=== PATIENT | male | born 1945 | race Caucasian/White ===

== ENCOUNTER 2017-08-18 10:51 | Inpatient (IN) | payer OTHER ==
--- NOTE | 2017-08-18 11:12 | CPEKG ---
Heart Rate: 134 RR Interval: 448 QRSD Interval: 76 QT Interval: 320 QTC Interval: 478 QRS Lakin: -60 T Wave Lakin: 48 EKG Severity - ABNORMAL ECG - EKG Impression: A-FLUTTER W/ PREDOM 2:1 AV BLOCK, A-RATE 272 EKG Impression: INFERIOR INFARCT, AGE INDETERMINATE EKG Impression: ABNRM R PROG, CONSIDER ASMI OR LEAD PLACEMENT EKG Impression: LATERAL LEADS ARE ALSO INVOLVED EKG Impression: BORDERLINE PROLONGED QT INTERVAL Electronically Signed By: Patrizia Ennis 18-Aug-2017 15:30:22
[2017-08-18 11:21] LABS: PLATELET COUNT 205 10^3/uL (150-400)
[2017-08-18] MEDS ORDERED: DILTIAZEM 125 MG in D5W 125 ML IV ONE (11:46)
[2017-08-18] MEDS ORDERED: FUROSEMIDE 40 MG/4 ML VIAL IVP ONE (12:07)
[2017-08-18] MEDS ORDERED: AZITHROMYCIN IV 500 MG in D5W 250 ML IV ONE (12:07)
[2017-08-18] MEDS ORDERED: cefTRIAXone 1 GM in STERILE WATER INJ 10 ML IV ONE (12:07)
--- NOTE | 2017-08-18 12:13 | EDPHY ---
H & P Time Seen by Provider: 08/18/17 11:07 HPI/ROS: HPI Shortness of breath. 72-year-old male by private vehicle. He has a history of congestive heart failure as well as coronary artery disease. This patient reports that he fell 2 weeks ago. He contused his left-sided lower ribs. He reports over the last week he has had increasing shortness of breath with physical exertion and with laying flat. Significantly worse last night. No associated palpitations. He denies cough. No fever. No muscle aches or joint aches. No chest pain. ROS: Constitutional: No fever, no chills. No weakness. Eyes: No discharge. No changes in vision. ENT: No sore throat. No nasal congestion or rhinorrhea. Respiratory: No cough. As above. Cardiac: No chest pain, no palpitations. Gastrointestinal: No abdominal pain, no vomiting, no diarrhea. Genitourinary: No hematuria. No dysuria or increased frequency with urination. Musculoskeletal: No back pain. No neck pain. No myalgias or arthralgias. Skin: No rashes. Neurological: No headache. No focal weakness or altered sensation. Past medical history: Diabetes, atrial fibrillation, as above. Social history: Nonsmoker. Denies alcohol. Here by himself. Physical Exam: General Appearance: Alert, no distress. Obese habitus. This patient is responding to questions appropriately and in full sentences, is mildly dyspneic when doing this. This patient appears well-hydrated and well-nourished. Eyes: Pupils equal and round no pallor or injection. No lid edema, erythema or injection. Respiratory: There are no retractions, lungs are clear to auscultation anteriorly with good air movement bilaterally. Cardiovascular: Tachycardia, regular rhythm. No murmur appreciated. Gastrointestinal: Obese habitus: Abdomen is soft and nontender, no masses, bowel sounds normal. No focal tenderness at McBurney's point. No Monterroso sign. Neurological: Motor sensory function is grossly intact. Cranial nerves are normal. Gait is normal. Skin: Warm and dry, no rashes. He has an area of ecchymosis medial aspect right upper extremity from his fall. There is no significant tenderness on palpation of this area. No pain elicited by axial compression of his forearm and arm. Elbow ranges without significant pain or impingement. Musculoskeletal: Neck is supple and nontender. He has some ecchymosis noted left side mid axillary line at the costal margin. No bony tenderness on palpation to this area. No crepitus or deformity noted. Extremities are symmetrical. All joints range without pain or impingement. Psychiatric: No agitation. No depression. Database: EKG: EKG time is 11:09 a.m.; this shows a narrow complex regular tachycardia with ventricular rate of 134. Likely a flutter with 2-1 block QS waves noted in 2 3 and AVF, poor R-wave progression in the anterior precordial leads. Imaging: Chest x-ray AP portable: Mild CHF versus fluid overload. Moderate to large pleural effusion on the right side with underlying basilar atelectasis versus infiltrate. Interpreted by me. Procedures: Emergency department course: IV placed x2, vital signs reviewed, patient placed on a pump servicer helper. Patient currently 92% on 2 L by nasal cannula oxygen. EKG obtained and reviewed by myself. He will be started on a diltiazem loading drip at 2.5 milligrams/minute for rate control. He will also be given 40 mg of IV Lasix once rate control has been obtained. He was started on IV normal saline with 250 cc to 500 cc to be given over the next hr. 12:35 p.m., patient re-evaluated. He is currently on a steady state diltiazem drip at 10 milligrams/hour. Blood pressure is 104/68. restaurant cook shows a narrow complex irregular rhythm at 91. Pulse oximetry currently 92% on 2 L by nasal cannula oxygen. He received a total of 23 mg of IV diltiazem for initial loading drip rate control management. Once rate was controlled he was given 40 mg of IV Lasix. He is noted to be hyperkalemic without EKG changes. His troponin is also noted to be mildly elevated. He does not have chest pain. This is likely from his prolonged tachycardic state. The patient was also covered with IV azithromycin and IV ceftriaxone for possible infiltrative process as noted above on x-ray. Blood cultures were obtained before antibiotics administered. I discussed the results of his diagnostic testing. As well as plan for admission. All of his questions were answered. 12:50 p.m., spoke with on-call hospitalist. Patient accepted for admission under the care of Dr. Hidalgo. Differential Diagnosis: The differential diagnosis on this patient includes but is not limited to atrial flutter with 2-1 block versus atrial flutter with variable block, congestive heart failure, acute coronary syndrome, pneumonia, hyperkalemia. This represents a partial list of diagnoses considered. These considerations are based on history, physical exam, past history, reassessment and diagnostic testing. Smoking Status: Never smoked Constitutional: Initial Vital Signs Temperature (C) 36.4 C 08/18/17 11:00 Heart Rate 136 H 08/18/17 11:00 Respiratory Rate 20 08/18/17 11:00 Blood Pressure 119/91 H 08/18/17 11:00 O2 Sat (%) 91 L 08/18/17 11:00 O2 Delivery Mode Nasal Cannula O2 (L/minute) 3 Allergies/Adverse Reactions: No Known Allergies Allergy (Verified 08/18/17 10:57) Home Medications: Medication Instructions Recorded Aspirin [Aspirin 325 mg (OTC)] 325 mg PO DAILY 02/23/13 [place]-3 Fatty Acids [Fish Oil 1000 1,000 mg PO DAILY 02/23/13 mg (OTC)] Lisinopril [Zestril 5 mg (*)] 5 mg PO DAILY 08/18/17 Multivitamins [Multivitamin (*)] 1 each PO DAILY 08/18/17 Simvastatin [Zocor] 20 mg PO DAILY 08/18/17 Warfarin Sodium [Coumadin 2.5MG 2.5 mg PO SUTUTHFRSA 08/18/17 (*)] Warfarin Sodium [Coumadin 5MG (*)] 5 mg PO MOWE 08/18/17 metFORMIN HCL [Glucophage 500 mg 1,000 mg PO DAILY 08/18/17 (*)] metFORMIN HCL [Glucophage 500 mg 500 mg PO DAILY18 08/18/17 (*)] Medical Decision Making Critical Care Time: I spent a total of 42 minutes of critical care time in obtaining history, performing a physical exam, bedside monitoring of interventions, collecting and interpreting tests and discussion with consultants but not including time spent performing procedures. - Data Points Laboratory Results: Laboratory Results 08/18/17 11:10 08/18/17 11:10 08/18/17 11:10 INR 6.66 H* (0.83-1.16) Medications Given: Acetaminophen (Tylenol) 650 mg PO Q4HRS PRN PRN Reason: Pain, Mild/Fever, Can Take PO Stop: 02/14/18 13:00 Last Admin: 08/19/17 02:38 Dose: 650 mg Aspirin (Aspirin) 325 mg PO DAILY SKYLAR Stop: 02/15/18 08:59 Last Admin: 08/19/17 10:34 Dose: 325 mg Atorvastatin Calcium (Lipitor) 10 mg PO DAILY SKYLAR Stop: 02/15/18 08:59 Last Admin: 08/19/17 10:33 Dose: 10 mg Furosemide (Lasix Injection) 40 mg IVP BID@0900,1500 [facility] [place] Stop: 02/15/18 10:05 Last Admin: 08/19/17 15:51 Dose: 40 mg Insulin Human Lispro (Humalog Lispro) 0 unit SC TIDMEAL SKYLAR PRN Reason: Protocol Stop: 02/14/18 17:59 Last Admin: 08/19/17 16:10 Dose: Not Given Multivitamins (Tab-A-Randal) 1 each PO DAILY [facility] Stop: 02/15/18 08:59 Last Admin: 08/19/17 10:34 Dose: 1 each Edvbl-0-Joxq Ethyl Esters (Fish Oil) 1,000 mg PO DAILY [facility] [place] Stop: 02/15/18 08:59 Last Admin: 08/19/17 10:34 Dose: 1,000 mg Discontinued Medications Atropine Sulfate (Atropine 1 Mg/10 Ml Syringe) 1 mg IVP ONCALL ONE Stop: 08/19/17 11:17 Last Admin: 08/19/17 15:23 Dose: Not Given Furosemide (Lasix Injection) 40 mg IVP EDNOW ONE Stop: 08/18/17 12:08 Last Admin: 08/18/17 12:36 Dose: 40 mg Gabapentin (Neurontin) 300 mg PO ONCE ONE Stop: 08/19/17 03:45 Last Admin: 08/19/17 03:54 Dose: 300 mg Diltiazem HCl 125 mg/ Dextrose 125 mls @ 0 mls/hr IV EDNOW ONE; As Directed PRN Reason: Protocol Stop: 08/18/17 11:47 Last Admin: 08/18/17 12:09 Dose: 125 mls Azithromycin 500 mg/ Dextrose 255 mls @ 255 mls/hr IV EDNOW ONE PRN Reason: Protocol Stop: 08/18/17 13:06 Last Admin: 08/18/17 12:54 Dose: 255 mls Ceftriaxone Sodium 1 gm/ (Sterile Water) 10 mls @ 150 mls/hr IV EDNOW ONE PRN Reason: Protocol Stop: 08/18/17 12:10 Last Admin: 08/18/17 12:47 Dose: 10 mls Sodium Chloride (Ns) 1,000 mls @ 0 mls/hr IV ONCALL ONE PRN Reason: TKO Stop: 08/19/17 11:17 Last Admin: 08/19/17 15:23 Dose: Not Given Metoprolol Tartrate (Lopressor) 12.5 mg PO BID SKYLAR Stop: 02/14/18 20:59 Last Admin: 08/19/17 10:33 Dose: 12.5 mg Metoprolol Tartrate (Lopressor) 12.5 mg PO ONCE ONE Stop: 08/19/17 09:42 Last Admin: 08/19/17 10:33 Dose: 12.5 mg Phytonadione (Vitamin K) 200 mcg PO ONCE ONE Stop: 08/18/17 13:38 Last Admin: 08/18/17 14:22 Dose: 200 mcg Departure - Departure Disposition: [facility] Inpatient Acute Clinical Impression: Atrial flutter, Tachycardia, Elevated troponin, Congestive heart failure, Hyperkalemia, Possible pneumonia
[2017-08-18] MEDS ORDERED: ONDANSETRON DISINTEGRATING 4 MG TAB PO PRN (13:01)
[2017-08-18] MEDS ORDERED: ONDANSETRON 4 MG/2 ML VIAL IVP PRN (13:01)
[2017-08-18] MEDS ORDERED: PHYTONADIONE 100 MCG TAB PO ONE (13:37)
[2017-08-18] MEDS ORDERED: D50W 25 GM/50 ML SYR IVP PRN (13:52)
--- NOTE | 2017-08-18 14:17 | GHP ---
[f rep st] HISTORY AND PHYSICAL DATE OF ADMISSION: 08/18/2017 CHIEF COMPLAINT: Dyspnea. HISTORY OF PRESENT ILLNESS: A 72-year-old male with a history of coronary artery disease, status pos t CABG with ischemic cardiomyopathy, who presents with 2 weeks of progressive shortness of breath. P annient notes his dyspnea is worse at night when lying flat, has had several episodes of PND. Describ es increasing lower extremity edema during that time period in addition to weight gain, even with delisa ing less nutritional intake. The patient reports having a mechanical fall approximately a week and a half ago that led to some bruised ribs on the left. He thought potentially that fall was the causat paul agent for his progressing shortness of breath; therefore, did not present for evaluation. Denies in this time period any sensation of palpitations, did note tightening of his chest in the evenings when he was feeling particularly short of breath lying flat. The patient denies any subjective fever s or chills. Reports normal bowel habits, normal passing of urine. No blood in his stools or urine. PAST MEDICAL HISTORY: 1. Coronary artery disease, status post CABG. 2. Atrial fibrillation, on chronic anticoagulation. 3. Hypertension. 4. Hyperlipidemia. 5. Diabetes. SOCIAL HISTORY: Negative for tobacco. Occasional alcohol. No illicit drugs or marijuana. FAMILY HISTORY: Positive for coronary artery disease in a brother who of an AK in his 60s. ADVANCED DIRECTIVES: Patient is full COR, full tube. His sister would be his medical decision maker . REVIEW OF SYSTEMS: A 10-point review of systems is negative with the exception of that reported in t he HPI. PHYSICAL EXAMINATION: VITAL SIGNS: At presentation, blood pressure 125/94, heart rate 136, oxygen s aturation 89% on 3 L. GENERAL: This is an obese-appearing elderly male in no acute distress. HEENT : Notable for moist mucous membranes. Eye exam is negative for any icterus. CARDIAC: Patient's he art sounds are distant and irregular. PULMONARY: Limited respiratory effort with diminished breath sounds at the bases. No rales are appreciated. GASTROINTESTINAL: Obese abdomen, positive bowel rufino nds. Abdomen is soft. MUSCULOSKELETAL: Notable for pitting bilateral lower extremity edema. SKIN: Notable for erythematous changes across the abdomen and lower extremities. Suspect related to dry skin and/or perfusion abnormalities. PSYCHIATRIC: Patient is cooperative on interview and examinati on. NEUROLOGIC: He is alert and oriented x3. DATA: White count 7.2, hematocrit 53.5, platelets of 205. INR 6.6. Potassium of 5.8, creatinine of 1.1, glucose of 124. BNP of 5560. Troponin 0.131. Chest x-ray, which I personally reviewed and in terpreted, shows an elevated right hemidiaphragm with pulmonary edema. EKG, which I personally revie wed and interpreted, shows atrial flutter, running approximately 150. No acute ST-T changes. ASSESSMENT AND PLAN: This is a 72-year-old male presenting with dyspnea. 1. Acute systolic heart failure. Patient has a known reduced ejection fraction and is presenting wi th atrial flutter at rapid rates. Will initiate IV diuresis as well as rate control. Cardiology has been consulted. Transthoracic echocardiogram has been ordered to look at progression of patient's c ardiomyopathy. 2. Atrial flutter with rapid ventricular response. Patient did not feel palpitations. Suspect he h as likely been running fast for quite some time or intermittently running fast over the course of the preceding 2 weeks. The patient's INR is supratherapeutic, was initiated on diltiazem drip with good rate control, but we are noticing a decline in blood pressure from the systolics in the 120s to syst olics now in the 80s. Have discussed with Cardiology. Will discontinue this diltiazem drip with hop es of initiating oral metoprolol 12.5 b.i.d. We have kept the patient n.p.o. in case he needs more e mergent cardioversion. 3. Acute hypoxic respiratory failure secondary to systolic heart failure. Will treat as above, opti mizing the patient's cardiac parameters and IV diuresis. 4. Coagulopathy secondary to supratherapeutic Coumadin. We will give the patient low-dose vitamin K in hopes of reversing to a more normal therapeutic range. Patient has no acute signs of bleeding. 5. Diabetes. Will treat with sliding scale insulin, holding metformin in the inpatient setting. 6. Hypertension. Patient is currently hypotensive secondary to IV diltiazem. Will monitor closely. 7. Elevated creatinine. Patient's baseline creatinine appears to be 0.8. He is presenting with a c reatinine of 1.1. We are initiating IV diuresis. We will hold the patient's lisinopril until a rech christos of his renal function tomorrow. 8. Hyperlipidemia. We will continue his statin therapy. 9. Prophylaxis. The patient has a supratherapeutic INR. 10. Diet. N.p.o. until clear plan in place related to cardioversion. 11. Disposition. I expect greater than 2 midnights as the patient is presenting with atrial flutter with rapid ventricular response and acute heart failure. Patient will require additional diagnostic s and therapeutics for stabilization. I have discussed the case with Dr. Subha Santiago from Cardiology. They will consult and manage with us concurrently. /[id number]/MODL
--- NOTE | 2017-08-18 15:16 | ECHO ---
[email or web address] [address] [address] Main: [phone] Fax: Transthoracic Echocardiogram Name: KISHA BELTRAN MR#: [id number] Study Date: 08/18/2017 Study Time: 02:09 PM Date of : 1945 Age: 72 year(s) Height: 175.3 cm (69 in.) Weight: 97.52 kg (215 lb.) BSA: 2.13 m2 Gender: Male Examination: Echo Indication: Systolic heart disease Image Quality: Contrast: Requested by: Orly Hidalgo BP: 88 mmHg/54 mmHg Heart Rate: Rhythm: Indication: Systolic heart disease Procedure Staff Environmental Professional: Polly Ramos Reading Physician: Subha Santiago Requesting Provider: Orly Hidalgo Conclusions: Mildly dilated left ventricle. The ejection fraction is estimated to be 20-25 %. global hypokinesis with septal dyskinesis. Moderately dilated right ventricle. Moderately reduced RV function. Flattened interventricular septum consistent with right ventricular pressure and/or volume overload septum. The left atrium is moderately dilated. The right atrium is moderately dilated. Moderate mitral valve regurgitation is present. There is a partially mobile echodensity associated with the non coronary cusp of the aortic valve; vegetation cannot be ruled out. The valve was not interrogated by Doppler. Moderate to severe tricuspid valve regurgitation. The pulmonary artery pressure is normal. Compared with 01/2013 LVEF is slightly worse. LV apical thrombus not seen on current study. Valvular disease as above is now present Measurements: Chambers Valvular Assessment AV/MV Valvular Assessment TV/PV Normal Normal Normal Name Value Range Name Value Range Name Value Range Ao Ara (MM): 3.5 cm (2.2 cm-3.7 AV Vmax: 1.09 m/s (1 m/s-1.7 TR Vmax: 2.09 mm/s ( - ) cm) m/s) TR PGmax: 17 mmHg ( - ) IVSd (2D): 1.1 cm (0.6 cm-1.1 AV maxP mmHg ( - ) syst. PAP: 27 mmHg ( - ) cm) AV meanP mmHg ( - ) LVDd (2D): 5.7 cm (4.2 cm-5.9 MV E Vmax: 0.64 m/s ( - ) cm) LVDs (2D): 4.9 cm (2.1 cm-4 cm) Patient: KISHA BELTRAN Study Date: 08/18/2017 Page 1 of 2 02:09 PM LVPWd (2D): 0.9 cm (0.6 cm-1 cm) LVOTd 2.3 cm 2.3 cm mm LVEF (2D): 29 (>=54 %) EF Range: 20-25 % Continued Measurements: Chambers Valvular Assessment AV/MV Valvular Assessment TV/PV Name Value Name Value Name Value LADs Lon.3 cm MR Vena Contracta: 0.6 cm CVP (est.): 10 mmHg LA Area: 26.8 cm2 Findings: Left Ventricle: Mildly dilated left ventricle. The ejection fraction is estimated to be 20-25 %. global hypokinesis with septal dyskinesis. Right Ventricle: Moderately dilated right ventricle. Moderately reduced RV function. Flattened interventricular septum consistent with right ventricular pressure and/or volume overload septum. Left Atrium: The left atrium is moderately dilated. Right Atrium: The right atrium is moderately dilated. Mitral Valve: The mitral valve is normal in appearance and function. Moderate mitral valve regurgitation is present. Aortic Valve: Mild aortic cusp calcification is noted. There is a partially mobile echodensity associated with the non coronary cusp of the aortic valve; vegetation cannot be ruled out. The valve was not interrogated by Doppler. Tricuspid Valve: The tricuspid valve is normal in appearance and function. Moderate to severe tricuspid valve regurgitation. The pulmonary artery pressure is normal. Pulmonic Valve: The pulmonic valve is normal in appearance and function. Trivial pulmonic valve regurgitation. Aorta: The aorta is normal. Pericardium: No pericardial effusion. Left side pleural effusion. (No Signature Object) Patient: KISHA BELTRAN Study Date: 08/18/2017 Page 2 of 2 02:09 PM [id number]
--- NOTE | 2017-08-18 17:03 | PDMN ---
Medical Necessity Medical necessity: Pt meets INPT criteria per MD and [facility] M-190 Heart Failure ( acute systolic heart failure presenting with atrial flutter with RVR, acute hypoxic respiratory failure 2/2 systolic heart failure, coagulopathy 2/2 supratherapeutic coumadin, elevated creatinine, hyperkalemia; hx DM, htn).
[2017-08-18] MEDS: INSULIN LISPRO 100 UNIT/ML SC SCH (18:34)
[2017-08-18] MEDS: METOPROLOL TARTRATE 25 MG TAB PO SCH (22:20)
--- NOTE | 2017-08-19 01:35 | GCON ---
[f rep st] CONSULTATION CARDIOLOGY CONSULTATION DATE OF CONSULTATION: 08/18/2017 PRIMARY HOT END OPERATOR: Darrian Barger MD. CHIEF COMPLAINT: Shortness of breath. HISTORY OF PRESENT ILLNESS: We were asked by Dr. Hidalgo to visit with Darrian. The patient is a 72 -year-old male with a history of ischemic cardiomyopathy. In 2012, he had a 5-vessel bypass (QUICK to the LAD, sequential vein graft to the left-sided PDA and posterolateral branch, SVG to OM, and SVG t o diagonal). He also has paroxysmal atrial fibrillation for which he takes warfarin, ejection fracti on of 35% based on 2013 echocardiogram, diabetes, hypertension, and PVD. Two weeks ago, he sustained a mechanical fall and hit his right forearm and his left thorax. After t his, he started to feel short of breath and had a 15-pound weight gain and significant lower extremit y edema, PND, and orthopnea. He did not have angina. He denies palpitations, presyncope, or syncope . Because of his progressive symptoms, he presented to the emergency department today. He was last seen by Dr. Barger in February of 2017 and was stable at that time. In the ER, he was found to be in heart failure and atrial fibrillation with rapid ventricular respons e with creatinine of 1.1, hyperkalemia, and an INR of 6.6. He had pleural effusion on chest x-ray bu t also was given empiric antibiotics for possible pneumonia. He is hypoxic. He is now being admitte d for further evaluation. REVIEW OF SYSTEMS: A full 10-point review of systems was performed and is notable for a diffuse macu lopapular rash over his abdomen, lower back, and both legs. He also has stable claudication. The kingsley foley has been taking all his usual medications as prescribed. Denies any new medications or new soa ps/detergents. No new supplements. Otherwise review of systems is negative except that which is out lined in history of present illness. ALLERGIES: No known drug allergies. PAST MEDICAL HISTORY: 1. Coronary artery disease with 5-vessel CABG as detailed above. 2. Paroxysmal atrial fibrillation. 3. History of heart failure and cardiomyopathy. 4. Diabetes. 5. Hypertension. 6. Dyslipidemia. 7. PVD followed by Dr. Martínez with stable claudication. No intervention. 8. Obesity. OUTPATIENT MEDICATIONS: Aspirin 325 mg daily, lisinopril 5 mg daily, metformin, multivitamin, [place]- 3 fatty acids, Zocor 20 mg daily, and warfarin. SOCIAL HISTORY: The patient lives alone. He drinks alcohol only occasionally and does not drink hea vily. He does not smoke cigarettes. FAMILY HISTORY: His brother of coronary artery disease in his 60s. PHYSICAL EXAM: VITAL SIGNS: Blood pressure 88/55, heart rate 91, oxygen saturation 93% on 3 L nasal cannula. He is afebrile. GENERAL: Slightly ill-appearing older male in no acute distress. He is sitting upright. Slightly dyspneic. HEENT: Sclerae clear and free of jaundice. Mucous members are moist. Normocephalic, atraumatic. CARDIOVASCULAR: JVP is to the angle of the ear with the patient at 90 degrees. Irregular regular rhythm with 2/6 holosystolic murmur at the left lower sternal bord er and apex. No S3. LUNGS: Decreased breath sounds at both bases. No wheezes, rhonchi, or rales. ABDOMEN: Distended and nontender. Normal bowel sounds. No obvious bruits, masses, or hepatospleno megaly. EXTREMITIES: Warm and well perfused. There is diffuse maculopapular rash over both lower e xtremities. He has 1+ pitting edema to the midshin bilaterally. 1+ dorsalis pedis pulses bilaterall y. NEURO: Alert and oriented x3 without gross focal neurological deficits. LABORATORY AND DIAGNOSTIC STUDIES: White count 7.27, hematocrit 52.5, and platelets 205. INR 6.66. D-dimer minimally elevated at 0.54, PT 57, PTT 81.8. Sodium 144, potassium 5.8, chloride 107, bicar b 22, BUN 25, creatinine 1.1 from a baseline of 0.8. BNP 5560. Troponin 0.131. TSH 3.5. Echocardiogram reviewed by me: Mild LV dilation. Ejection fraction is 20% to 25% with septal dyskin esis and moderate global hypokinesis. The right ventricle is moderately dilated with moderately redu saundra systolic function. Moderate biatrial dilation. Moderate mitral regurgitation. Yiuhgkeq-su-ouzu re tricuspid valve regurgitation. Cannot rule out aortic valve. There is a partially mobile echoden sity associated with the noncoronary cusp with the aortic valve. Vegetation cannot be ruled out. Chest x-ray reviewed by me: Large right pleural effusion versus right lower lobe pneumonia. Interst itial prominence. Cardiomegaly. EKG reviewed by me: Atrial fibrillation with a ventricular response of 134 beats per minute. Left a nterior fascicular block. Delayed R-wave progression. PVC. Reviewed outpatient [facility] notes: No echocardiogram or myocardial perfusion study since 2012. ASSESSMENT AND PLAN: 72-year-old male with known ischemic cardiomyopathy and paroxysmal atrial fibri llation presents with florid decompensated heart failure and atrial fibrillation with rapid ventricul ar response. The etiology of his decompensation may be related to poorly controlled atrial fibrillat ion compounded by viral infection. The latter may be an explanation for his rash. I do not think he has acute coronary syndrome. Minimally elevated troponin is likely related to rapid atrial fibrilla tion and systolic heart failure. 1. Acute decompensated systolic heart failure: Agree with diuresis and careful attention to electro lytes and renal function. Initiate metoprolol, both for his heart failure and his atrial fibrillatio n. Do not use diltiazem for his atrial fibrillation. Would continue his outpatient lisinopril. Cou ld consider transesophageal echocardiography-guided cardioversion over the next couple days if he rem ains in atrial fibrillation. 2. Atrial fibrillation: Currently rate controlled. As above, would not use calcium channel jazmyn s given his cardiomyopathy. Can up titrate beta blockers as necessary. May need transesophageal ech ocardiography-guided cardioversion. Continue warfarin. 3. Coronary artery disease: Denies angina. Consider nuclear stress test for further risk stratific ation in the setting of known coronary artery disease and heart failure exacerbation. 4. Hyperkalemia: Hopefully this will improve with diuresis. Watch closely. 5. Supratherapeutic INR: No clinical bleeding. Small doses of vitamin K per Dr. Hidalgo. Follow h ematocrit and INR. 6. Rash: This may be a viral exanthem. He does have abnormal appearance to his aortic valve, and v egetation cannot be ruled out. Blood cultures are pending. We will check ESR and CRP. May need tra nsesophageal echocardiography as per #1 and #2. Thank you for allowing us to participate in the patient's care. We will follow with you. /[id number]/MODL
[2017-08-19] MEDS: ACETAMINOPHEN 325 MG TAB PO PRN ×2 (02:38→19:30)
[2017-08-19] MEDS ORDERED: GABAPENTIN 300 MG CAP PO ONE (03:44)
[2017-08-19 05:40] LABS: PROTIME(PATIENT) 46.8 SEC (12.0-15.0)
[2017-08-19 05:53] LABS: INR 5.15 (0.83-1.16)
[2017-08-19] MEDS: INSULIN LISPRO 100 UNIT/ML SC SCH ×3 (08:47→16:10)
[2017-08-19] MEDS ORDERED: METOPROLOL TARTRATE 25 MG TAB PO ONE (09:41)
[2017-08-19] MEDS: FUROSEMIDE 40 MG/4 ML VIAL IVP SCH ×2 (10:32→15:51)
[2017-08-19] MEDS: METOPROLOL TARTRATE 25 MG TAB PO SCH (10:33)
[2017-08-19] MEDS: ATORVASTATIN CALCIUM 10 MG TAB PO SCH (10:33)
[2017-08-19] MEDS: OMEGA-3 FATTY ACIDS 1,000 MG CAP PO SCH (10:34)
[2017-08-19] MEDS: MULTIVITAMINS 1 EACH TAB PO SCH (10:34)
[2017-08-19] MEDS: ASPIRIN 325 MG TAB PO SCH (10:34)
[2017-08-19] MEDS ORDERED: NS 1,000 ML IV ONE (11:16)
[2017-08-19] MEDS ORDERED: ATROPINE SULFATE 1 MG/10 ML SYR IVP ONE (11:16)
--- NOTE | 2017-08-19 11:34 | PDCARPN ---
Cardiology Progress Note Assessment/Plan: Assessment/plan: 72-year-old male with history of coronary disease status post CABG in 2013 and nonischemic cardiomyopathy. He also has paroxysmal atrial fibrillation heart disease with moderate mitral regurgitation and moderate to severe tricuspid regurgitation. He was admitted through the emergency department on August 18 with decompensated heart failure in atrial fibrillation with rapid ventricular response. His heart failure may been triggered by viral infection atrial fibrillation. 1. Acute systolic heart failure: Ejection fraction 25%. He also has moderate RV dysfunction. He is on moderate dose beta blockers. Agree continued IV diuresis. Would plan to initiate lisinopril once his creatinine has proven to be stable. We will plan for ELVIS guided cardioversion today to improve cardiac function. May also be candidate for spironolactone long-term. 2. Coronary disease: Troponin 0.157. No angina. Repeat troponin. I do not think he is having active cardiac ischemia. Consider further risk stratification with an outpatient myocardial perfusion stress test. 3. Atrial fibrillation: He is on beta-blockers. He has previously been on warfarin which is not being held for high INR. Plan cardioversion today. Will also perform ELVIS prior to cardioversion as he had some nonspecific abnormalities on his aorta off and I want to make sure does not have endocarditis. 4. Valvular heart disease: As detailed above. ELVIS today. His mitral and tricuspid regurgitation may improve with diuresis and jehovah's witness of sinus rhythm. 5. Hypertension: Fairly well controlled. 6. Diabetes: Per Internal Medicine. Currently on insulin. 7. Rash: This may be a viral exanthem versus some sort of contact dermatitis. His ESR is only 8, CRP 25 08/19/17 11:34 Subjective: Darrian reports his previous improved with diuresis. No Angina. Reviewed/Discussed With: hospitalist Objective: Vital Signs (8 Hrs) Temp Pulse Resp BP Pulse Ox 08/19/17 08:00 36.4 C 107 H 15 129/98 H 87 L 08/19/17 04:08 36.7 C 101 H 16 116/78 93 Intake/Output (24 Hrs) 08/18/17 08/19/17 08/20/17 05:59 05:59 05:59 Intake Total 100 Balance 100 Intake: Oral (ml) 100 Other: Weight 107.9 kg Intake Quantity Yes Sufficient Number of Voids 0 NAD, lying flat in bed JVP to ear at 90 degrees. Irreg irreg soft early systolic murmur apex Lungs decreased BS both bases 1+ pitting edema to mid anderson bilat maculopapular rash over lower thorax and both legs Result Diagrams: 08/18/17 11:10 08/19/17 04:37 Cardiac Labs: Cardiac Lab Results (72 Hrs) 08/18/17 19:20 Troponin I 0.157 H Telemetry: AF with HRs low 100s ICD10 Worksheet Patient Problems: Problems Problem Status Onset Atrial flutter Acute Tachycardia Acute Elevated troponin Acute Congestive heart failure Acute Hyperkalemia Acute
[2017-08-19 12:11] LABS: INR 4.29 (0.83-1.16); PROTIME(PATIENT) 40.7 SEC (12.0-15.0)
[2017-08-19] MEDS ORDERED: PROPOFOL 200 MG/20 ML VIAL ONE (14:16)
--- NOTE | 2017-08-19 14:16 | PDHPUP ---
History & Physical Update H&P update statement: This history and physical update is based on an assessment of the patient which was completed after admission or registration (within 24 hours), but prior to the surgery/procedure. H&P update: H&P reviewed & patient examined, no change in patient's condition since H&P completed
--- NOTE | 2017-08-19 14:22 | PDANEPAE ---
ANE History of Present Illness a flutter p/f ELVIS/CV ANE Past Medical History - Cardiovascular History Hx Hypertension: Yes Hx Arrhythmias: Yes Hx Chest Pain: No Hx Coronary Artery / Peripheral Vascular Disease: Yes Hx CHF / Valvular Disease: Yes Hx Palpitations: Yes - Pulmonary History Hx COPD: No Hx Asthma/Reactive Airway Disease: No Hx Oxygen in Use at Home: No Hx Sleep Apnea: No - Endocrine History Hx Diabetes: Yes Hypothyroid: No Hyperthyroid: No Obesity: yes - Chronic Pain History Chronic Pain: No ANE Review of Systems Review of Systems: - Exercise capacity Exercise capacity: <4 METS ANE Patient History - Allergies Allergies/Adverse Reactions: No Known Allergies Allergy (Verified 08/18/17 10:57) - Home Medications Home medications: home medication list seen and reviewed Home Medications: Aspirin [Aspirin 325 mg (OTC)] 325 mg PO DAILY 02/23/13 [Last Taken 08/18/17] [place]-3 Fatty Acids [Fish Oil 1000 mg (OTC)] 1,000 mg PO DAILY 02/23/13 [Last Taken 08/18/17] Lisinopril [Zestril 5 mg (*)] 5 mg PO DAILY 08/18/17 [Last Taken 08/18/17] Multivitamins [Multivitamin (*)] 1 each PO DAILY 08/18/17 [Last Taken 08/18/17] Simvastatin [Zocor] 20 mg PO DAILY 08/18/17 [Last Taken 08/18/17] Warfarin Sodium [Coumadin 2.5MG (*)] 2.5 mg PO SUTUTHFRSA 08/18/17 [Last Taken 08/18/17] Warfarin Sodium [Coumadin 5MG (*)] 5 mg PO MOWE 08/18/17 [Last Taken 08/17/17] metFORMIN HCL [Glucophage 500 mg (*)] 1,000 mg PO DAILY 08/18/17 [Last Taken ] metFORMIN HCL [Glucophage 500 mg (*)] 500 mg PO DAILY18 08/18/17 [Last Taken ] - Smoking Hx Smoking Status: Former smoker ANE Labs/Vital Signs - Labs Result Diagrams: 08/18/17 11:10 08/19/17 11:57 - Vital Signs Blood Pressure: 119/73 Heart Rate: 97 Respiratory Rate: 15 O2 Sat (%): 88 Height: 175.26 cm Weight: 107.9 kg ANE Physical Exam - Airway Neck exam: FROM Mallampati Score: Class 1 Mouth exam: poor dentition - Pulmonary Pulmonary: no respiratory distress - Cardiovascular Cardiovascular: irregularly irregular - ASA Status ASA Status: IV ANE Anesthesia Plan Anesthesia Plan: GA with mask
[2017-08-19 14:38] LABS: INR 6.66 (0.83-1.16)
--- NOTE | 2017-08-19 14:54 | PDTEE1 ---
ELVIS Cardioversion Procedure Procedure: electrical cardioversion, transesophageal echo Indications: atrial fibrillation, cardiomyopathy Consent: signed and in chart Anticoagulation: warfarin Procedural Details: Sedation was provided by the anesthesia service. Pads were placed in anterior- posterior position. ELVIS probe was advanced and standard images obtained. There is no evidence of left atrial or left atrial appendage thrombus. Synchronized cardioversion attempt #1: 200J Results: normal sinus rhythm Conclusions: successful ELVIS cardioversion Patient Problems: Problems Problem Status Onset Atrial flutter Acute Tachycardia Acute Elevated troponin Acute Congestive heart failure Acute Hyperkalemia Acute
--- NOTE | 2017-08-19 15:07 | CPEKG ---
Heart Rate: 83 RR Interval: 723 P-R Interval: 156 QRSD Interval: 78 QT Interval: 412 QTC Interval: 485 P [place]: 1 QRS [place]: -43 T Wave [place]: 20 EKG Severity - ABNORMAL ECG - EKG Impression: SINUS RHYTHM EKG Impression: ATRIAL PREMATURE COMPLEX EKG Impression: PROBABLE INFERIOR INFARCT, AGE INDETERMINATE EKG Impression: BORDERLINE PROLONGED QT INTERVAL EKG Impression: COMPARED WITH 08/18/2017, SINUS RHYTHM IS NOW PRESENT. PVC ABSENT. Electronically Signed By: Subha Santiago 20-Aug-2017 13:16:58
--- NOTE | 2017-08-19 15:08 | POSTANESTH ---
Post Anesthetic Evaluation Cardiovascular Status: Normal, Stable Respiratory Status: Normal, Stable Level of Consciousness/Mental Status: Can Participate in Eval Pain Control: Adequate, Prn Tx Ordered Nausea/Vomiting Control: Adequate, Prn Tx Ordered Complications Possibly Related to Anesthesia: None Noted
--- NOTE | 2017-08-19 16:18 | ECHO ---
[email or web address] [place] [id number] Main: [phone] Fax: Transesophageal Echocardiography Name: KISHA BELTRAN MR#: [id number] Study Date: 08/19/2017 Study Time: 02:13 PM Date of : 1945 Age: 72 year(s) Height: ( ) Weight: ( ) BSA: Gender: Male Examination: ELVIS Indication: Atrial Fibrillation Image Quality: Contrast: Requested by: Subha Santiago Heart Rate: Rhythm: BP: 123 mmHg/83 mmHg Procedure Staff Soaker: Polly Ramos Reading Physician: Subha Santiago Requesting Provider: Orly Hidalgo ELVIS Exam Details Patient Consent: Risks, alternatives of procedure explained to patient, informed consent obtained. Patient Fasting: yes Conclusions: The ejection fraction is estimated to be 20-25 %. Severely reduced RV function. An agitated saline study was performed and was negative for intracardiac shunting. Spontaneous contrast in the left atrium. No thrombus in left appendage. Spontaneous contrast is present in the left atrial appendage. Moderate mitral valve regurgitation is present. The aortic valve is tri-leaflet. There is a mobile echodensity with the noncoronary cusp of the aortic valve.. Mild tricuspid regurgitation is present. There is Grade 2 aorta plaque. Measurements: Chambers Valvular Assessment AV/MV Valvular Assessment TV/PV Normal Normal Normal Name Value Range Name Value Range Name Value Range EF Range: 20-25 % Additional Measurements: Patient: KISHA BELTRAN Study Date: 08/19/2017 Page 1 of 2 02:13 PM Findings: The ejection fraction is estimated to be 20-25 %. Right Ventricle: Severely reduced RV function. Left Atrium: An agitated saline study was performed and was negative for intracardiac shunting. Spontaneous contrast in the left atrium. Left Atrial Appendage: No thrombus in left appendage. Spontaneous contrast is present in the left atrial appendage. Mitral Valve: Moderate mitral valve regurgitation is present. Aortic Valve: The aortic valve is tri-leaflet. There is a mobile echodensity with the noncoronary cusp of the aortic valve.. Tricuspid Valve: Mild tricuspid regurgitation is present. Aorta: There is Grade 2 aorta plaque. l1n (No Signature Object) Patient: KISHA BELTRAN Study Date: 08/19/2017 Page 2 of 2 02:13 PM [id number]
--- NOTE | 2017-08-19 16:25 | HOSPPROG ---
Hospitalist Progress Note Assessment/Plan: # Acute Aflutter with RVR - pt heart rates improved overnight on metoprolol TELE (persoanlly reviewed and interpreted) remans in Afib 100's - NPO for Cardioversion today - cont metoprolol - on anticoagulation (supratherapeutic) # Acute systolic HF - sx improved overnight with diuresis - cardioversion to improved cardiac synchronization and outflow - cont lasix IV BID - cont B Fatoumata - add back low dose CHARLENE if pressures allow after cardioversion #AHRF 2/2 above - cont diuresis -oxygen saturations 95% on 3L # CAD - s/p CABG - no CP troponins remain indeterminant 0.12-0.15 - cont ASA, beta fatoumata, statin and CHARLENE as above # supratheraputic INR - received 200mcg Vitamin K INR 6.6-> 4.2 - cont hold warfarin - recheck INR in am # proph- theraputic anticoagulation # diet- cardiac after cardioversion # dispo -> 2 MN as requires ongoing diuresis and cardiac care I have discussed the case with we will plan for cardioversion today Subjective: no pain Objective: Vital Signs Temp Pulse Resp BP Pulse Ox 36.4 C 87 15 112/90 H 95 08/19/17 11:33 08/19/17 15:57 08/19/17 15:57 08/19/17 15:57 08/19/17 15:57 Laboratory Results 08/19/17 11:57 08/18/17 08/19/17 08/20/17 05:59 05:59 05:59 Intake Total 100 Output Total 1000 Balance 100 -1000 PT 40.7 SEC (12.0-15.0) H 08/19/17 11:57 INR 4.29 (0.83-1.16) H 08/19/17 11:57 - Physical Exam Constitutional: no apparent distress Eyes: anicteric sclera Ears, Nose, Mouth, Throat: moist mucous membranes Cardiovascular: irregularly irregular, tachycardia Respiratory: no respiratory distress Gastrointestinal: normoactive bowel sounds Genitourinary: no bladder fullness Skin: warm Musculoskeletal: No asymmetric calves Neurologic: AAOx3 Psychiatric: interacting appropriately Lymph, Heme, Immunologic: no cervical LAD ICD10 Worksheet Patient Problems: Problems Problem Status Onset Atrial flutter Acute Congestive heart failure Acute Elevated troponin Acute Hyperkalemia Acute Tachycardia Acute
--- NOTE | 2017-08-19 17:00 | CPEKG ---
Heart Rate: 93 RR Interval: 645 P-R Interval: 176 QRSD Interval: 88 QT Interval: 376 QTC Interval: 468 P [place]: 35 QRS [place]: -54 T Wave [place]: 57 EKG Severity - ABNORMAL ECG - EKG Impression: SINUS RHYTHM EKG Impression: VENTRICULAR PREMATURE COMPLEX EKG Impression: INFERIOR INFARCT, AGE INDETERMINATE EKG Impression: ABNRM R PROG, CONSIDER ASMI OR LEAD PLACEMENT EKG Impression: COMPARED WITH 08/19/2017 AT 3:04 P.M., PVC NOW PRESENT. QT INTERVAL IS SLIGHTLY EKG Impression: SHORTER Electronically Signed By: Subha Santiago 20-Aug-2017 13:16:19
--- NOTE | 2017-08-19 17:58 | ASMTCMCOM ---
CM Note CM Note Notes: 08/19/2017 Case Management Note Reviewed chart. PT recommending d/c to home. Pt has family and friend support. Case Management d/c poc: Home independent with follow up as directed. Case Management available if needs change. Date Signed: 08/19/2017 05:57 PM Electronically Signed By:Elena Barba RN
[2017-08-19] MEDS ORDERED: METOPROLOL TARTRATE 25 MG TAB PO SCH (21:00)
[2017-08-20] MEDS: INSULIN LISPRO 100 UNIT/ML SC SCH ×2 (07:39→12:18)
[2017-08-20] MEDS ORDERED: METOPROLOL SUCCINATE XR 50 MG TAB PO SCH (09:00)
[2017-08-20] MEDS: FUROSEMIDE 40 MG/4 ML VIAL IVP SCH ×2 (09:32→16:15)
[2017-08-20] MEDS: OMEGA-3 FATTY ACIDS 1,000 MG CAP PO SCH (09:42)
[2017-08-20] MEDS: ATORVASTATIN CALCIUM 10 MG TAB PO SCH (09:42)
[2017-08-20] MEDS: ASPIRIN 325 MG TAB PO SCH (09:43)
[2017-08-20] MEDS: MULTIVITAMINS 1 EACH TAB PO SCH (09:43)
[2017-08-20 10:33] LABS: INR 3.37 (0.83-1.16); PROTIME(PATIENT) 33.9 SEC (12.0-15.0)
--- NOTE | 2017-08-20 11:37 | PDCARPN ---
Cardiology Progress Note Assessment/Plan: Assessment/plan: 72-year-old male with history of coronary disease status post CABG in 2012 and ischemic cardiomyopathy. He also has paroxysmal atrial fibrillation and valvular heart disease with moderate mitral regurgitation and moderate to severe tricuspid regurgitation. He was admitted through the emergency department on August 18 with decompensated heart failure in atrial fibrillation with rapid ventricular response. His heart failure may have been triggered by viral infection atrial fibrillation. s/p ELVIS guided DCCV 08/19. 1. Acute systolic heart failure: Ejection fraction 25%. He also has moderate RV dysfunction. Increase beta blockers. Restart CHARLENE-I. Agree continued IV diuresis. May also be candidate for spironolactone long-term. 2. Coronary disease: Troponin 0.157. No angina. I do not think he is having active cardiac ischemia. Consider further risk stratification with an outpatient myocardial perfusion stress test. 3. Atrial fibrillation: s/p DCCV 08/19. He is on beta-blockers and warfarin. Rhythm appears to be ST today. ECG today to confirm. 4. Valvular heart disease: As detailed above. His mitral and tricuspid regurgitation may improve with diuresis and caodaism of sinus rhythm. 5. Hypertension: Fairly well controlled. 6. Diabetes: Per Internal Medicine. Currently on insulin. 7. Rash: This may be a viral exanthem versus some sort of contact dermatitis. His ESR is only 8, CRP 25 8. Loose front lower tooth: appreciate Dr. Raymundo's oral surgery consult. No need for acute intervention. Follow up as oupatient. 08/20/17 11:45 Subjective: Darrian feels a bit better but is still mildly SOB. No angina. Objective: Vital Signs (8 Hrs) Temp Pulse Resp BP Pulse Ox 08/20/17 11:12 36.8 C 96 18 136/94 H 96 08/20/17 08:30 36.6 C 105 H 18 131/94 H 08/20/17 04:00 36.8 C 97 18 126/82 H 95 Intake/Output (24 Hrs) 08/19/17 08/20/17 08/21/17 05:59 05:59 05:59 Intake Total 100 400 Output Total 1000 Balance 100 -600 Intake: Oral (ml) 100 400 Output: Urine (ml) 1000 Toilet 1000 Other: Weight 107.9 kg 106 kg Intake Quantity Yes Sufficient Number of Voids 0 Toilet 3 NAD JVP 12 Reg, tachycardic. Soft early systolic murmur LLSB Rales left base 1+ pitting edema to mid anderson bilaterally Result Diagrams: 08/18/17 11:10 08/19/17 11:57 Cardiac Labs: Cardiac Lab Results (72 Hrs) 08/19/17 08/18/17 11:57 19:20 Troponin I 0.122 H 0.157 H Telemetry: NSR, low grade ST. Occ PVCs. ICD10 Worksheet Patient Problems: Problems Problem Status Onset Atrial flutter Acute Tachycardia Acute Elevated troponin Acute Congestive heart failure Acute Hyperkalemia Acute
[2017-08-20] MEDS ORDERED: METOPROLOL SUCCINATE XR 25 MG TAB PO ONE (11:45)
--- NOTE | 2017-08-20 12:21 | CPEKG ---
Heart Rate: 96 RR Interval: 625 P-R Interval: 188 QRSD Interval: 84 QT Interval: 364 QTC Interval: 460 P [place]: 47 QRS [place]: -50 T Wave [place]: 57 EKG Severity - ABNORMAL ECG - EKG Impression: SINUS RHYTHM EKG Impression: PAIRED VENTRICULAR PREMATURE COMPLEXES EKG Impression: INFERIOR INFARCT, AGE INDETERMINATE EKG Impression: ABNRM R PROG, CONSIDER ASMI OR LEAD PLACEMENT EKG Impression: COMPARED WITH 08/19/2017 AT 4:58 P.M., NO SIGNIFICANT CHANGE Electronically Signed By: Subha Santiago 20-Aug-2017 13:15:42
--- NOTE | 2017-08-20 12:57 | GCON ---
[f rep st] CONSULTATION FOR ACQUISITION ANALYST. DATE OF CONSULTATION: 08/18/2017 CHIEF COMPLAINT: loose tooth. HISTORY OF PRESENT ILLNESS: Patient is a 72-year-old male with a history of ischemic cardiomyopathy status post a 5-vessel bypass. Two weeks previously, he sustained a mechanical fall with subsequent progressive shortness of breath and a 15 pound weight loss. He has been admitted for further evaluation. On a ELVIS performed today, the Cardiology team endorsed a mobile tooth post-operatively, and OMFS was consulted with concerns over aspiration. The patient currently denies any pain with the tooth, and states that it was loose prior to his hospitalization, but not as much as it is today. He does not have a general dentist and has not seen anyone for a dental evaluation in the recent past. PAST MEDICAL HISTORY: Coronary artery disease with 5-vessel CABG, paroxysmal atrial fibrillation, heart failure, cardiomyopathy, diabetes, hypertension, dyslipidemia, and peripheral vascular disease. MEDICATIONS: See MAR. ALLERGIES: None. SOCIAL HISTORY: He lives alone. Social EtOH use. No tobacco use. FAMILY HISTORY: Brother of CAD in his 60s. REVIEW OF SYSTEMS: Negative except for the above findings. PHYSICAL EXAMINATION: VITAL SIGNS: Weight 108 kg, BMI is 35. Blood pressure 112 /90, heart rate 87, respiratory rate 15, O2 saturation 95% on 4 L of nasal cannula, temperature 36.4. GENERAL: Patient is resting comfortably in no acute distress. NEUROLOGIC: Normocephalic. CN II-XII grossly intact. HEENT: SHARMIN is 40 mm, partial edentulism with teeth #'s 18, 21, 22, 23, 25, 26, and 27 present. Number 18 with gross caries and a temporary mandaen. Number 23 +3 mobility. No vestibular edema. Floor of mouth is soft and non-elevated. Remaining dentition with severe periodontal support. No acute pathology observed. ASSESSMENT AND PLAN: The patient will require extraction of this tooth (as well as consideration of the remaining teeth) as an outpatient. He was given contact information for Dr. Raymundo. No antibiotics or intervention recommended other than a soft diet during his hospitalization. /[id number]/MODL MTDD
[2017-08-20] MEDS: LISINOPRIL 5 MG TAB PO SCH (13:01)
--- NOTE | 2017-08-20 15:21 | HOSPPROG ---
Hospitalist Progress Note Assessment/Plan: # Acute Aflutter with RVR - s/p cardioversion - TELE (personally reviewed and interpreted) sinus rhythm 80's - continue Toprol - restarting warfarin tonight - INR 3.37 # Acute systolic HF - sx improved overnight with diuresis - cardioversion to improved cardiac synchronization and outflow - cont lasix IV BID- diuresing well - cont B Fatoumata - cont CHARLENE #AHRF 2/2 above - cont diuresis -oxygen saturations 95% on 3L - work on weaning O2 today # CAD - s/p CABG - no CP troponins remain indeterminant 0.12-0.15 - cont ASA, beta fatoumata, statin and CHARLENE as above # supratheraputic INR - received 200mcg Vitamin K INR 6.6-> 3.3 - restart warfarin tonight - recheck INR in am # proph- therapeutic anticoagulation # diet- cardiac after cardioversion # dispo -> 2 MN as requires ongoing diuresis and cardiac care I have discussed the case with we will continue IV diuresis today Subjective: improved edema Objective: Vital Signs Temp Pulse Resp BP Pulse Ox 36.4 C 85 12 113/82 H 94 08/20/17 15:11 08/20/17 15:11 08/20/17 15:11 08/20/17 15:11 08/20/17 15:11 Laboratory Results 08/20/17 11:45 08/19/17 08/20/17 08/21/17 05:59 05:59 05:59 Intake Total 100 400 Output Total 1000 Balance 100 -600 PT 33.9 SEC (12.0-15.0) H 08/20/17 09:59 INR 3.37 (0.83-1.16) H 08/20/17 09:59 - Physical Exam Constitutional: appears nourished Eyes: anicteric sclera Ears, Nose, Mouth, Throat: moist mucous membranes Cardiovascular: regular rate and rhythym Respiratory: no respiratory distress, inspiratory crackles Gastrointestinal: normoactive bowel sounds Genitourinary: no bladder fullness Skin: warm Musculoskeletal: No asymmetric calves Neurologic: AAOx3 Psychiatric: interacting appropriately Lymph, Heme, Immunologic: no cervical LAD ICD10 Worksheet Patient Problems: Problems Problem Status Onset Atrial flutter Acute Congestive heart failure Acute Elevated troponin Acute Hyperkalemia Acute Tachycardia Acute
[2017-08-20] MEDS ORDERED: WARFARIN SODIUM 2.5 MG TAB PO SCH (15:30)
[2017-08-20] MEDS: WARFARIN SODIUM 2.5 MG TAB PO SCH (16:15)
[2017-08-20] MEDS: CEPACOL LOZENGE PO PRN (16:15)
[2017-08-20] MEDS: ACETAMINOPHEN 325 MG TAB PO PRN (20:37)
[2017-08-21 04:42] LABS: INR 2.79 (0.83-1.16); PROTIME(PATIENT) 29.3 SEC (12.0-15.0)
[2017-08-21] MEDS: CEPACOL LOZENGE PO PRN ×2 (05:40→15:59)
[2017-08-21] MEDS: FUROSEMIDE 40 MG/4 ML VIAL IVP SCH ×2 (08:07→15:59)
[2017-08-21] MEDS: ATORVASTATIN CALCIUM 10 MG TAB PO SCH (08:18)
[2017-08-21] MEDS: OMEGA-3 FATTY ACIDS 1,000 MG CAP PO SCH (08:18)
[2017-08-21] MEDS: METOPROLOL SUCCINATE XR 50 MG TAB PO SCH (08:19)
[2017-08-21] MEDS: LISINOPRIL 5 MG TAB PO SCH (08:21)
[2017-08-21] MEDS: ASPIRIN 325 MG TAB PO SCH (08:21)
[2017-08-21] MEDS: MULTIVITAMINS 1 EACH TAB PO SCH (08:21)
--- NOTE | 2017-08-21 10:41 | PDCARPN ---
Cardiology Progress Note Assessment/Plan: Assessment/plan: 72-year-old male with history of coronary disease status post CABG in 2013 and ischemic cardiomyopathy. He also has paroxysmal atrial fibrillation and valvular heart disease with moderate mitral regurgitation and moderate to severe tricuspid regurgitation. He was admitted through the emergency department on August 18 with decompensated heart failure in atrial fibrillation with rapid ventricular response. His heart failure may have been triggered by viral infection atrial fibrillation. s/p ELVIS guided DCCV 08/19. 1. Acute systolic heart failure: Ejection fraction 25%. He also has moderate RV dysfunction. Continue beta-blockers and Hugh inhibitor. Agree continued IV diuresis. May also be candidate for spironolactone long-term, although he did have hyperkalemia on admission which has now resolved. 2. Coronary disease: Troponin 0.157. No angina. I do not think he is having active cardiac ischemia. Further risk stratification with an outpatient myocardial perfusion stress test. Decrease aspirin to 81 mg daily. 3. Atrial fibrillation: s/p DCCV 08/19. He is on beta-blockers and warfarin. Currently in sinus rhythm. 4. Valvular heart disease: As detailed above. His mitral and tricuspid regurgitation may improve with diuresis and mu-ism of sinus rhythm. 5. Hypertension: Fairly well controlled. 6. Diabetes: Per Internal Medicine. Currently on insulin. 7. Rash: This may be a viral exanthem versus some sort of contact dermatitis. His ESR is only 8, CRP 25 8. Loose front lower tooth: appreciate Dr. Raymundo's oral surgery consult. No need for acute intervention. Follow up as oupatient. 9. Throat discomfort. Sounds more consistent with reflux and less likely angina. Trial of Protonix. 08/21/17 10:43 Subjective: Darrian does reports some PND overnight. Not short of breath now. Around 7:00 a.m. he had some throat tightness that resolved after he ate breakfast. He states this is intermittently been a problem in the past. Objective: Vital Signs (8 Hrs) Temp Pulse Resp BP Pulse Ox 08/21/17 07:39 36.4 C 92 19 135/85 H 95 08/21/17 04:00 36.7 C 80 16 130/88 H 96 Intake/Output (24 Hrs) 08/20/17 08/21/17 08/22/17 05:59 05:59 05:59 Intake Total 400 1460 Output Total 1000 Balance -600 1460 Intake: Oral (ml) 400 1460 Output: Urine (ml) 1000 Toilet 1000 Other: Weight 106 kg 106 kg Number of Voids Toilet 3 2 No acute distress. JVP 14 cm of water. Regular rate and rhythm with soft early systolic murmur left lower sternal border and apex Lungs clear bilaterally that was regards Persistent 1+ pitting edema to mid anderson bilaterally Result Diagrams: 08/18/17 11:10 08/21/17 04:04 Cardiac Labs: Cardiac Lab Results (72 Hrs) 08/19/17 08/18/17 11:57 19:20 Troponin I 0.122 H 0.157 H EKG: Reviewed from yesterday. Sinus rhythm PACs and PVCs. Inferior infarct that is old. Telemetry: Sinus rhythm with frequent PACs. Occasional PVCs. ICD10 Worksheet Patient Problems: Problems Problem Status Onset Atrial flutter Acute Congestive heart failure Acute Elevated troponin Acute Hyperkalemia Acute Tachycardia Acute
[2017-08-21] MEDS: PANTOPRAZOLE SODIUM 40 MG TAB PO SCH (11:15)
--- NOTE | 2017-08-21 13:35 | WOCRNPDOC ---
WOCRN Advanced Assessment Note - Skin Integrity Problem, Advanced Assess Bilateral Heel Cracks Dressing Type: Open to Air Exudate Amount: None Exudate Characteristic(s): None Integumentary Issue Intervention: Lotion/Cream Applied (Nursing applied Atrac- tain cream) Catie Wound Tissue: Erythema, Swollen, Ankle Flare, Hair Loss Catie Wound Swelling: None Site Odor: None Pulse Location & Description: No DP pulse bilaterally; >3 sec cap refill on toes. Extremity Temperature: Cool Skin Integrity Problem Comment: Superfical fissures noted on the plantar aspect of patient's feet, most notably over L metatarsals and bilateral heels. He reports that this is an ongoing problem, and that he typically applied vaseline to these areas. Patient has diminished circulation evident in both feet, w/ no palpable DP pulse and >3sec cap refill, suggesting some vascular compromise. The condition of this skin is consistent w/ type 2 DM, w/ dry, flaking skin. Will have nursing apply Atrac-tain cream to help exfoliate the dry skin.
--- NOTE | 2017-08-21 15:26 | ASMTCMCOM ---
CM Note CM Note Notes: NICOLE spoke w/ Monika RN regarding d/c POC. Plan remains the same. Pt will d/c home independent. Therapies continue to recommend home without any needs. CM available for changes. Plan: Independent Date Signed: 08/21/2017 03:25 PM Electronically Signed By:TATYANA Burns
[2017-08-21] MEDS: WARFARIN SODIUM 2.5 MG TAB PO SCH (15:59)
--- NOTE | 2017-08-21 17:23 | HOSPPROG ---
Hospitalist Progress Note Assessment/Plan: # acute on chronic sCHF, EF 25% - cont lasix 40 IV bid - cont lisino, metop # a-flutter, RVR s/p DCCV, currently NSR - cont warfarin, metop # CAD s/p CABG - cont warfarin, asa, metop, statin - trop elevated, cards plans outpatient stress # VHD - mod MR, mod-severe TR # AHRF - better with diruesis - check CXR tomorrow # DM - glucs controlled, not on treatment here (metformin at home) # supratherapeutic INR - s/p 200 mcg vit K, INR therapeutic today Subjective: seen with Shellie, his niece; no complaints Objective: Vital Signs Temp Pulse Resp BP Pulse Ox 36.6 C 89 16 112/81 H 93 08/21/17 15:37 08/21/17 15:37 08/21/17 15:37 08/21/17 15:37 08/21/17 15:37 Laboratory Results 08/21/17 04:04 08/20/17 08/21/17 08/22/17 05:59 05:59 05:59 Intake Total 400 1460 1625 Output Total 1000 1000 Balance -600 1460 625 PT 29.3 SEC (12.0-15.0) H 08/21/17 04:04 INR 2.79 (0.83-1.16) H 08/21/17 04:04 chart reviewed CXR personally reviewed cardiac op note reviewed - Physical Exam Constitutional: no apparent distress Cardiovascular: regular rate and rhythym, no murmur, rub, or gallop, edema Respiratory: no respiratory distress, other (diminished BS R base), No inspiratory crackles, No bronchial breath sounds Gastrointestinal: normoactive bowel sounds, soft, non-tender abdomen, no palpable masses ICD10 Worksheet Patient Problems: Problems Problem Status Onset Atrial flutter Acute Congestive heart failure Acute Elevated troponin Acute Hyperkalemia Acute Tachycardia Acute
[2017-08-22] MEDS ORDERED: METOLAZONE 5 MG TAB PO ONE (08:57)
--- NOTE | 2017-08-22 08:57 | PDCARPN ---
Cardiology Progress Note Assessment/Plan: Assessment/plan: 72-year-old male with history of coronary disease status post CABG in 2013 and ischemic cardiomyopathy. He also has paroxysmal atrial fibrillation and valvular heart disease with moderate mitral regurgitation and moderate to severe tricuspid regurgitation. He was admitted through the emergency department on August 18 with decompensated heart failure in atrial fibrillation with rapid ventricular response. His heart failure may have been triggered by viral infection and atrial fibrillation. s/p ELVIS guided DCCV 08/19. 1. Acute systolic heart failure: Ejection fraction 25%. He also has moderate RV dysfunction. Continue beta-blockers and Hugh inhibitor. Still volume overloaded. CXR with persistent right pleural effusion. Agree with continued IV diuresis. Will add one dose of metolazone today. May also be candidate for spironolactone long-term, although he did have hyperkalemia on admission which has now resolved. 2. Coronary disease: Troponin 0.157. No angina. I do not think he is having active cardiac ischemia. Further risk stratification with an outpatient myocardial perfusion stress test. COntinue ASA. 3. Atrial fibrillation: s/p DCCV 08/19. He is on beta-blockers and warfarin. Currently in sinus rhythm. He did have nonsustained VT on 08/21. I explained the rationale behind telemetry monitoring and he agrees to wear monitor during the day. I explained that he could have VT that we wouldn't see if he's not wearing monitor. 4. Valvular heart disease: As detailed above. His mitral and tricuspid regurgitation may improve with diuresis and christianity of sinus rhythm. 5. Hypertension: Fairly well controlled. 6. Diabetes: Per Internal Medicine. 7. Rash: This may be a viral exanthem versus some sort of contact dermatitis. His ESR is only 8, CRP 25 8. Loose front lower tooth: appreciate Dr. Raymundo's oral surgery consult. No need for acute intervention. Follow up as oupatient. 9. Persistently abnormal CXR with hypoxia: likely pleural effusion, continue diuresis. CLinically does not appear to have pneumonia. Consider decubitus films and thoracentesis if not improving. 08/22/17 09:06 Subjective: SOB improved but still present with exertion. No angina. Denies lightheadeness Objective: Vital Signs (8 Hrs) Temp Pulse Resp BP Pulse Ox 08/22/17 07:30 36.4 C 83 16 123/83 H 95 08/22/17 04:00 36.8 C 76 16 115/85 H 90 L Intake/Output (24 Hrs) 08/21/17 08/22/17 08/23/17 05:59 05:59 05:59 Intake Total 1460 2024 Output Total 1000 Balance 1460 1025 Intake: Oral (ml) 1460 2024 Output: Urine (ml) 1000 Toilet 1000 Other: Weight 106 kg Intake Quantity Yes Sufficient Number of Voids Toilet 2 3 Number of Stools Toilet 2 NAD JVP 12 RRR occ ectopy. SOft early systolic murmur apex Decreased breath sounds right base Persistent but improving 1+ BLEE Result Diagrams: 08/18/17 11:10 08/21/17 04:04 Cardiac Labs: Cardiac Lab Results (72 Hrs) 08/19/17 11:57 Troponin I 0.122 H Telemetry: Currently not wearing monitor as it is bothersome to him. Previously NSR with PACs. Nonsustained VT 08/21 afternoon ICD10 Worksheet Patient Problems: Problems Problem Status Onset Atrial flutter Acute Tachycardia Acute Elevated troponin Acute Congestive heart failure Acute Hyperkalemia Acute
--- NOTE | 2017-08-22 09:35 | HOSPPROG ---
Hospitalist Progress Note Assessment/Plan: # acute on chronic sCHF, EF 25% - cont lasix 40 IV bid; got metolazone x 1 today - cont lisino, metop # a-flutter, RVR s/p DCCV, currently NSR - cont warfarin, metop - check INR today # CAD s/p CABG - cont warfarin, asa, metop, statin - trop elevated, cards plans outpatient stress # VHD - mod MR, mod-severe TR # AHRF - now on RA # R effusion vs infiltrate - check CT to better eval # DM - glucs controlled, not on treatment here (metformin at home) # supratherapeutic INR - s/p 200 mcg vit K, INR therapeutic today Subjective: SOB better Objective: Vital Signs Temp Pulse Resp BP Pulse Ox 36.4 C 83 16 123/83 H 95 08/22/17 07:30 08/22/17 07:30 08/22/17 07:30 08/22/17 07:30 08/22/17 07:30 Laboratory Results 08/21/17 04:04 08/21/17 08/22/17 08/23/17 05:59 05:59 05:59 Intake Total 1460 2025 Output Total 1000 Balance 1460 1025 PT 29.3 SEC (12.0-15.0) H 08/21/17 04:04 INR 2.79 (0.83-1.16) H 08/21/17 04:04 high risk with aggressive IV diuresis - Physical Exam Constitutional: no apparent distress, appears nourished Cardiovascular: regular rate and rhythym, systolic murmur, No irregularly irregular Respiratory: no respiratory distress, reduced air movement (R base), No inspiratory crackles, No bronchial breath sounds Gastrointestinal: normoactive bowel sounds, soft, non-tender abdomen, no palpable masses ICD10 Worksheet Patient Problems: Problems Problem Status Onset Atrial flutter Acute Tachycardia Acute Elevated troponin Acute Congestive heart failure Acute Hyperkalemia Acute
[2017-08-22 10:18] LABS: PLATELET COUNT 191 10^3/uL (150-400)
[2017-08-22 10:24] LABS: INR 2.12 (0.83-1.16); PROTIME(PATIENT) 23.8 SEC (12.0-15.0)
[2017-08-22] MEDS: MULTIVITAMINS 1 EACH TAB PO SCH (10:53)
[2017-08-22] MEDS: OMEGA-3 FATTY ACIDS 1,000 MG CAP PO SCH (10:53)
[2017-08-22] MEDS: PANTOPRAZOLE SODIUM 40 MG TAB PO SCH (10:53)
[2017-08-22] MEDS: ASPIRIN 81 MG CHEWABLE TAB PO SCH (10:53)
[2017-08-22] MEDS: LISINOPRIL 5 MG TAB PO SCH (10:53)
[2017-08-22] MEDS: ATORVASTATIN CALCIUM 10 MG TAB PO SCH (10:53)
[2017-08-22] MEDS: METOPROLOL SUCCINATE XR 50 MG TAB PO SCH (10:54)
[2017-08-22] MEDS: FUROSEMIDE 40 MG/4 ML VIAL IVP SCH ×2 (11:06→17:18)
[2017-08-22] MEDS: WARFARIN SODIUM 2.5 MG TAB PO SCH (17:18)
[2017-08-23 05:52] LABS: PLATELET COUNT 192 10^3/uL (150-400)
[2017-08-23 06:01] LABS: INR 2.08 (0.83-1.16); PROTIME(PATIENT) 23.4 SEC (12.0-15.0)
[2017-08-23] MEDS: LISINOPRIL 5 MG TAB PO SCH (10:36)
[2017-08-23] MEDS: OMEGA-3 FATTY ACIDS 1,000 MG CAP PO SCH (10:36)
[2017-08-23] MEDS: MULTIVITAMINS 1 EACH TAB PO SCH (10:37)
[2017-08-23] MEDS: PANTOPRAZOLE SODIUM 40 MG TAB PO SCH (10:37)
[2017-08-23] MEDS: ATORVASTATIN CALCIUM 10 MG TAB PO SCH (10:37)
[2017-08-23] MEDS: METOPROLOL SUCCINATE XR 50 MG TAB PO SCH (10:37)
[2017-08-23] MEDS: ASPIRIN 81 MG CHEWABLE TAB PO SCH (10:37)
[2017-08-23] MEDS: FUROSEMIDE 40 MG/4 ML VIAL IVP SCH ×2 (10:37→16:09)
--- NOTE | 2017-08-23 12:10 | PDCARPN ---
Cardiology Progress Note Assessment/Plan: Assessment/plan: 72-year-old male with history of coronary disease status post CABG in 2012 and ischemic cardiomyopathy. He also has paroxysmal atrial fibrillation and valvular heart disease with moderate mitral regurgitation and moderate to severe tricuspid regurgitation. He was admitted through the emergency department on August 18 with decompensated heart failure in atrial fibrillation with rapid ventricular response. His heart failure may have been triggered by viral infection and atrial fibrillation. s/p ELVIS guided DCCV 08/19. 1. Acute systolic heart failure: Ejection fraction 25%. He also has moderate RV dysfunction. Continue beta-blockers and Hugh inhibitor. Still volume overloaded. CXR and chest CT with persistent bilateral pleural effusion. Agree with continued IV diuresis. Will add a dose of metolazone today. May also be candidate for spironolactone long-term, although he did have hyperkalemia on admission which has now resolved. Consider thoracentesis. Will discuss with Dr. Antoine. 2. Coronary disease: Troponin 0.157. No angina. I do not think he is having active cardiac ischemia. Further risk stratification with an outpatient myocardial perfusion stress test. Continue ASA. 3. Atrial fibrillation: s/p DCCV 08/19. He is on beta-blockers and warfarin. Currently in sinus rhythm. He did have nonsustained VT on 08/21. I explained the rationale behind telemetry monitoring and he agrees to wear monitor during the day. I explained that he could have VT that we wouldn't see if he's not wearing monitor. 4. Valvular heart disease: As detailed above. His mitral and tricuspid regurgitation may improve with diuresis and islam of sinus rhythm. 5. Hypertension: Fairly well controlled. 6. Diabetes: Per Internal Medicine. 6. Loose front lower tooth: appreciate Dr. Raymundo's oral surgery consult. No need for acute intervention. Follow up as oupatient. 08/23/17 12:14 Subjective: Feels slightly more dyspneic today. Does have some PND. No anginal chest pain. Reviewed/Discussed With: hospitalist Objective: Vital Signs (8 Hrs) Temp Pulse Resp BP Pulse Ox 08/23/17 08:00 35.8 C L 82 14 133/81 H 95 08/23/17 04:00 36.7 C 87 16 104/84 H 80 L Intake/Output (24 Hrs) 08/22/17 08/23/17 08/24/17 05:59 05:59 05:59 Intake Total 2024 1390 Output Total 1000 1950 1100 Balance 1025 -560 -1100 Intake: Oral (ml) 2024 1350 IV Intake (ml) 40 Output: Urine (ml) 1000 1950 1100 Toilet 1000 1050 1100 Urinal 900 Other: Weight 104.4 kg Intake Quantity Yes Sufficient Number of Voids Toilet 3 2 Urinal 2 Number of Stools Toilet 2 No acute distress. JVP 12-14 cm of water. Regular rate and rhythm with occasional ectopy. Soft early systolic murmur at the left sternal border. Absent breath sounds at the right base with decreased breath sounds at the left base. Persistent 1+ bilateral lower extremity edema. Result Diagrams: 08/23/17 05:40 08/23/17 05:40 ICD10 Worksheet Patient Problems: Problems Problem Status Onset Atrial flutter Acute Tachycardia Acute Elevated troponin Acute Congestive heart failure Acute Hyperkalemia Acute
[2017-08-23] MEDS ORDERED: METOLAZONE 5 MG TAB PO ONE (14:30)
--- NOTE | 2017-08-23 16:27 | ASMTCMCOM ---
CM Note CM Note Notes: Pt may need thoracentesis for pleural effusion. Planis currently home with no DC needs. CM will follow in case plans change. Date Signed: 08/23/2017 04:27 PM Electronically Signed By:Lexy Angulo LCSW
--- NOTE | 2017-08-23 17:09 | HOSPPROG ---
Hospitalist Progress Note Assessment/Plan: # acute on chronic sCHF, EF 25% - cont lasix 40 IV bid; got metolazone x 1 again today - cont lisino, metop # a-flutter, RVR s/p DCCV, currently NSR - cont warfarin, metop - follow INR # pleural effusion - will plan to tap the R pleural effusion when INR lower # CAD s/p CABG - cont warfarin, asa, metop, statin - trop elevated, cards plans outpatient stress # VHD - mod MR, mod-severe TR # AHRF - now on RA # DM - glucs controlled, not on treatment here (metformin at home) # supratherapeutic INR - s/p 200 mcg vit K, INR therapeutic today Subjective: no real complaints today Objective: Vital Signs Temp Pulse Resp BP Pulse Ox 35.9 C L 80 18 133/81 H 9 L 08/23/17 12:00 08/23/17 12:00 08/23/17 12:00 08/23/17 12:00 08/23/17 12:00 Laboratory Results 08/23/17 05:40 08/23/17 05:40 08/22/17 08/23/17 08/24/17 05:59 05:59 05:59 Intake Total 2024 1390 645 Output Total 1000 1950 2575 Balance 1025 -560 -1930 PT 23.4 SEC (12.0-15.0) H 08/23/17 05:40 INR 2.08 (0.83-1.16) H 08/23/17 05:40 CT reviewed plans for thora reviewed with Dr Santiago - Physical Exam Constitutional: no apparent distress Cardiovascular: regular rate and rhythym, no murmur, rub, or gallop Respiratory: no respiratory distress, reduced air movement (R base), No expiratory wheeze, No inspiratory crackles Gastrointestinal: soft, non-tender abdomen, no palpable masses ICD10 Worksheet Patient Problems: Problems Problem Status Onset Atrial flutter Acute Tachycardia Acute Elevated troponin Acute Congestive heart failure Acute Hyperkalemia Acute
[2017-08-24 04:25] LABS: INR 2.03 (0.83-1.16)
[2017-08-24] MEDS: METOPROLOL SUCCINATE XR 50 MG TAB PO SCH (08:52)
[2017-08-24] MEDS: OMEGA-3 FATTY ACIDS 1,000 MG CAP PO SCH (08:54)
[2017-08-24] MEDS: LISINOPRIL 5 MG TAB PO SCH (08:54)
[2017-08-24] MEDS: MULTIVITAMINS 1 EACH TAB PO SCH (08:54)
[2017-08-24] MEDS: ATORVASTATIN CALCIUM 10 MG TAB PO SCH (08:54)
[2017-08-24] MEDS: FUROSEMIDE 40 MG/4 ML VIAL IVP SCH ×2 (08:54→16:04)
[2017-08-24] MEDS: ASPIRIN 81 MG CHEWABLE TAB PO SCH (08:54)
[2017-08-24] MEDS: PANTOPRAZOLE SODIUM 40 MG TAB PO SCH (08:54)
[2017-08-24] MEDS ORDERED: METOLAZONE 2.5 MG TAB PO ONE (09:48)
[2017-08-24] MEDS ORDERED: POTASSIUM CL 20 MEQ TAB PO ONE (09:54)
--- NOTE | 2017-08-24 10:15 | PDCARPN ---
Cardiology Progress Note Chief Complaint: Patient reports continuation of swelling in lower extremities, reporting orthopnea. Assessment/Plan: Assessment: 72-year-old male with history of CAD status post CABG in 2012, ischemic cardiomyopathy, valvular heart disease , paroxysmal atrial fibrillation, admitted August 18 with decompensated heart failure and atrial fibrillation RVR. Echocardiogram 08/18/2017 showing EF of 20-25% with global hypokinesis septal dyskinesis, moderately dilated RV, moderately reduced RV function , flattened intraventricular septum consistent with RV pressure overload, LA was moderately dilated, RA is moderately dilated, moderate MR, moderate to severe TR , pulmonary artery pressure normal. ELVIS/cardioversion done on 08/19/2017 showed if continue to be 20-25%, severely reduced RV function , negative for intracardiac shunting, no thrombus in left atrial appendage, moderate MR, mild TR, mobile echodensity with the non coronary cusp of the aortic valve. Successfully converted back to sinus rhythm , with cardioversion. Chest CT on large and moderate left pleural effusion with complete atelectasis of the right lower lobe run moderate right mid in left lower lobe atelectasis with no definitive evidence of pneumonia. Noted on admission to have BNP of 5560, troponin elevation initially of 0.131, peaking at 0.157. No symptoms suggesting of angina since admission. 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 No other malignant arrhythmias or pauses noted. Patient yesterday was given 5 mg of metolazone in addition to IV Lasix, with good diuresis. He has had a significant weight from yesterday of 3 kilos. Output greater than input. Laboratory studies showing mild increase of CO2 to 35, BUN 32, creatinine 1.3. Potassium was noted to be 3.5, INR 2.03.. Patient denies of any chest pain or pressure. Continues to report orthopnea. Per patient mild improvement in peripheral edema. Currently warfarin is on hold, for plan thoracentesis. Plan: 1. Acute on chronic systolic heart failure: EF is 25%. Moderate RV dysfunction. Continue to be volume overloaded, with improvement BNP from admission on August 22 down to 4820. Patient was good diuresis with the addition 5 mg metolazone yesterday. Unfortunately CO2 raising. Will decrease metolazone back to 2.5 mg p.o. q.day. Patient noted to be mildly hypokalemic with potassium at 3.5. Noted to be hyperkalemia on admission, but has also. Will add 12.5 mg of Aldactone to medication regime. Will also supplement with 20 mEq of potassium p.o. today. Repeat potassium at 4:30 p.m. today. Continue on current doses of metoprolol succinate and lisinopril. 2. CAD: Troponin peaking at 0. 157 , and trending downward. Patient reporting no angina. More likely due to flow mismatch due to heart failure. Will plan for patient to undergo MPI study for further risk stratification as an outpatient. Continue on aspirin. 3. Pleural effusion: Noted off of the CT. Warfarin currently on hold, plan on thoracentesis in the next day or 2 once INR is therapeutic by interventional radiology. 4. Atrial fibrillation: Status post cardioversion, has been maintaining sinus rhythm. Continue metoprolol succinate as above. Patient on warfarin therapy with therapeutic INR, currently on hold in preparation for thoracentesis. 5. Hypertension: Blood pressure fairly well controlled, continue to monitor. 6. Diabetes: Management per hospital services. 7. Hyperlipidemia: Continue on statin therapy. 8. Valvular heart disease: Moderate MR, moderate to severe TR , improvement with diuresis. 08/24/17 10:14 Subjective: Patient denies of any chest pressure or pain. Reports shortness of breath has not worsened. Does continue to have orthopnea. Denies of any palpitations , lightheadedness, near-syncope, or syncopal events. Reviewed/Discussed With: other (Dr Herman) Objective: Vital Signs (8 Hrs) Temp Pulse Resp BP Pulse Ox 08/24/17 08:00 36.6 C 85 18 118/68 95 08/24/17 03:18 36.6 C 46 L 16 143/78 H 87 L Intake/Output (24 Hrs) 08/23/17 08/24/17 08/25/17 05:59 05:59 05:59 Intake Total 1390 1525 Output Total 1950 5875 Balance -560 -4350 Intake: Oral (ml) 1350 1525 IV Intake (ml) 40 Output: Urine (ml) 1950 5875 Toilet 1050 4675 Urinal 900 1200 Other: Weight 104.4 kg 101.2 kg Number of Voids Toilet 2 Urinal 2 Result Diagrams: 08/23/17 05:40 08/24/17 04:04 - Physical Exam Constitutional: no apparent distress, obese Ears, Nose, Mouth, Throat: moist mucous membranes Cardiovascular: regular rate and rhythm, no rubs, no gallops, systolic murmur ( 1-2/6 systolic murmur noted along left sternal border), jugular vein distention (4-5 cm above sternal notch at 45 degree angle), pulses symmetric bilat, No carotid bruit Peripheral Pulses: 1+: dorsalis-pedis (R), dorsalis-pedis (L), 2+: carotid (R), carotid (L) Respiratory: other ( diminished in right lower lobe, no rales noted, no accessory muscle use,) Gastrointestinal: normoactive bowel sounds, no tenderness Skin: no rashes, warm, No no edema ( +2 peripheral edema bilateral lower extremities to thighs.) Neurologic: AAOx3 Psychiatric: cooperative, interactive, following commands ICD10 Worksheet Patient Problems: Problems Problem Status Onset Atrial flutter Acute Tachycardia Acute Elevated troponin Acute Congestive heart failure Acute Hyperkalemia Acute
[2017-08-24] MEDS: SPIRONOLACTONE 25 MG TAB PO SCH (10:49)
--- NOTE | 2017-08-24 14:39 | HOSPPROG ---
Hospitalist Progress Note Assessment/Plan: DIAGNOSES: # acute on chronic S CHF, EF 25% # a-flutter, RVR s/p DCCV, currently NSR; chads Vasc score indicates anticoagulation long-term # pleural effusion due to CHF # CAD s/p CABG, with acute issues as above, no angina - on asa, metop, statin - trop elevated, cards plans outpatient stress # VHD - mod MR, mod-severe TR # AHRF - now on RA # DM - glucs controlled, not on treatment here (metformin at home) # supratherapeutic INR on admission, s/p 200 mcg vit K, currently waiting for INR down for a thoracentesis # chronic kidney disease with mild fluctuations and renal function here, will need to be watched closely with his diuresis The patient continues to have good diuresis with current medications, and continues to feel better with less dyspnea, able to ambulate more easily. No anginal symptoms no palpitations He remains in sinus rhythm at this time but is tolerating his metoprolol well Reviewed with Ned Avina of cardiology today PLANS: - will plan to tap the R pleural effusion when INR lower, most likely 1-2 days longer - continue metop - follow daily INR off anticoagulant, resume after thoracentesis - cont lasix 40 IV bid - cont lisino, metop - continue to monitor renal function and potassium daily while on IV Lasix SUBJECTIVE: Not particularly short of breath right now at rest in chair, still some orthopnea, exerting himself low more easily on his feet No angina no palpitations No fever symptoms OBJECTIVE Vitals reviewed: Intermittent borderline high systolic pressures, otherwise 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, my review: Remains in sinus rhythm Exam: alert oriented skin warm dry color ok resps not labored lungs diminished but otherwise clear BSs heart regular abd soft nondistended nontender, bowel sounds present limbs warm, still with fair bit of pitting edema both legs from the knees down to the feet, stasis dermatitis findings are improving slowly iv site ok Laboratory data: Creatinine at the ER today at 1.3, INR 2.0 Other labs all stable at present Objective: Vital Signs Temp Pulse Resp BP Pulse Ox 36.7 C 88 18 112/77 90 L 08/24/17 11:34 08/24/17 11:34 08/24/17 11:34 08/24/17 11:34 08/24/17 11:34 Laboratory Results 08/23/17 05:40 08/24/17 04:04 08/23/17 08/24/17 08/25/17 06:59 06:59 06:59 Intake Total 1390 1525 Output Total 1950 5842 1500 Balance -560 -4350 -1500 PT 23.0 SEC (12.0-15.0) H 08/24/17 04:04 INR 2.03 (0.83-1.16) H 08/24/17 04:04 - Time Spent With Patient Time Spent with Patient: greater than 35 minutes Time Spent with Patient: Greater than 35 minutes spent on this patients care, greater than 50% of time spent counseling, educating, and coordinating care regarding the above mentioned plan. ICD10 Worksheet Patient Problems: Problems Problem Status Onset Atrial flutter Acute Congestive heart failure Acute Elevated troponin Acute Hyperkalemia Acute Tachycardia Acute
[2017-08-24] MEDS ORDERED: ALTEPLASE 2 MG VIAL IVP PRN (15:16)
[2017-08-25 05:11] LABS: INR 1.65 (0.83-1.16); PROTIME(PATIENT) 19.6 SEC (12.0-15.0)
[2017-08-25] MEDS ORDERED: MAGNESIUM SULF 2 GM/WATER 50 ML IV ONE (07:44)
[2017-08-25] MEDS: PANTOPRAZOLE SODIUM 40 MG TAB PO SCH (08:01)
[2017-08-25] MEDS: ATORVASTATIN CALCIUM 10 MG TAB PO SCH (08:01)
[2017-08-25] MEDS: MULTIVITAMINS 1 EACH TAB PO SCH (08:02)
[2017-08-25] MEDS: SPIRONOLACTONE 25 MG TAB PO SCH (08:02)
[2017-08-25] MEDS: FUROSEMIDE 40 MG/4 ML VIAL IVP SCH ×2 (08:02→16:21)
[2017-08-25] MEDS: METOPROLOL SUCCINATE XR 50 MG TAB PO SCH (08:02)
[2017-08-25] MEDS: LISINOPRIL 5 MG TAB PO SCH (08:02)
[2017-08-25] MEDS: OMEGA-3 FATTY ACIDS 1,000 MG CAP PO SCH (08:03)
[2017-08-25] MEDS: ASPIRIN 81 MG CHEWABLE TAB PO SCH (08:03)
[2017-08-25] MEDS: POTASSIUM CL 20 MEQ TAB PO SCH ×2 (08:03→09:51)
--- NOTE | 2017-08-25 08:50 | CPEKG ---
Heart Rate: 91 RR Interval: 659 QRSD Interval: 100 QT Interval: 384 QTC Interval: 473 QRS [place]: -46 T Wave [place]: 114 EKG Severity - ABNORMAL ECG - EKG Impression: ATRIAL FIBRILLATION EKG Impression: PROBABLE INFERIOR INFARCT, AGE INDETERMINATE EKG Impression: ANTERIOR INFARCT, AGE INDETERMINATE Electronically Signed By: Sky Crespo 27-Aug-2017 13:01:51
[2017-08-25 11:48] LABS: PLATELET COUNT 183 10^3/uL (150-400)
--- NOTE | 2017-08-25 13:51 | PDCARPN ---
Cardiology Progress Note Chief Complaint: Patient reports continuation of orthopnea. Assessment/Plan: Assessment: 72-year-old male with history of CAD status post CABG in 2012, ischemic cardiomyopathy, valvular heart disease , paroxysmal atrial fibrillation, admitted August 18 with decompensated heart failure and atrial fibrillation RVR. Echocardiogram 08/18/2017 showing EF of 20-25% with global hypokinesis septal dyskinesis, moderately dilated RV, moderately reduced RV function , flattened intraventricular septum consistent with RV pressure overload, LA was moderately dilated, RA is moderately dilated, moderate MR, moderate to severe TR , pulmonary artery pressure normal. ELVIS/cardioversion done on 08/19/2017 showed if continue to be 20-25%, severely reduced RV function , negative for intracardiac shunting, no thrombus in left atrial appendage, moderate MR, mild TR, mobile echodensity with the non coronary cusp of the aortic valve, review with Dr Santiago, felt not to be vegetation. Successfully converted back to sinus rhythm , with cardioversion. Chest CT on 08/22/2017 large right and moderate left pleural effusion with complete atelectasis of the right lower lobe run moderate right mid in left lower lobe atelectasis with no definitive evidence of pneumonia. Noted on admission to have BNP of 5560, troponin elevation initially of 0.131, peaking at 0.157. No symptoms suggesting of angina since admission. Today, patient reports improvement in peripheral edema. Denies of any chest pressure or pain. Laboratory studies show potassium decreased at 3.3, chloride also down to 93, CO2 climbing at 37 BUN stable at 25, creatinine 1.1. Magnesium was also 1.6. Patient has had a 3.5 kilos weight dropped from yesterday over 4000 mL out. Unfortunately, patient has converted back into atrial fibrillation, but he is well rate controlled. His INR is subtherapeutic at 1.65. Plan: 1. Acute on chronic systolic heart failure: EF is 25%. Moderate RV dysfunction. Continues to have good diuresis with IV Lasix and metolazone. With most recent laboratory studies, will hold metolazone today. Continue on IV Lasix. Potentially transitioning over to oral diuretics tomorrow. Continue on current metoprolol succinate, lisinopril, and Aldactone. Replacement therapy for potassium and magnesium ordered. Repeat BNP, BMP, and magnesium in a.m. 2. CAD: Troponin peaking at 0. 157 , and trending downward. Patient reporting no symptoms suggesting of angina. More likely due to flow mismatch due to heart failure. Will plan for patient to undergo MPI study for further risk stratification as an outpatient. Continue on aspirin and metoprolol succinate. 3. Pleural effusion: Noted off of the CT. INR is 1.65 today, discussed with Dr. Atkins, interventional radiology, plan on right thoracentesis today at 3:00 p.m.. 4. Atrial fibrillation: Status post cardioversion, unfortunately converting back to atrial fibrillation, but well rate controlled on current medication regime. Will continue on current dose of metoprolol succinate. Continue diuresing for heart failure , potentially in a month, consideration repeating cardioversion when he is more euvolemic. As for anticoagulation, he has been off of warfarin , in preparation for thoracentesis. If okay by interventional radiology, due to recent cardioversion, will bridge with Lovenox starting tonight, and resume home dose warfarin therapy. 5. Hypertension: Blood pressure fairly well controlled, continue to monitor. 6. Diabetes: Management per hospital services. 7. Hyperlipidemia: Continue on statin therapy. 8. Valvular heart disease: Moderate MR, moderate to severe TR , improvement with diuresis. 08/25/17 13:43 Subjective: Patient reports no chest pressure or pain. Reports shortness of breath has improved. Continues to experience orthopnea. Denies of palpitations, lightheadedness, near-syncope or syncopal events. Reviewed/Discussed With: hospitalist (Dr Wilkins), multidisciplinary team (Dr Atkins ), other (Dr Herman and Dr Santiago) Objective: Vital Signs (8 Hrs) Temp Pulse Resp BP Pulse Ox 08/25/17 11:24 36.3 C 90 16 104/83 H 91 L 08/25/17 07:25 36.6 C 118 H 16 139/92 H 87 L Intake/Output (24 Hrs) 08/24/17 08/25/17 08/26/17 05:59 05:59 05:59 Intake Total 1525 2130 Output Total 5875 6200 Balance -4350 -4070 Intake: Oral (ml) 1525 2130 IV Intake (ml) 0 Output: Urine (ml) 5875 6200 Toilet 4675 4800 Urinal 1200 1400 Other: Weight 101.2 kg 97.7 kg Number of Stools Toilet 1 Urinal 1 Result Diagrams: 08/25/17 11:11 08/25/17 04:20 - Physical Exam Constitutional: WDWN, no apparent distress Ears, Nose, Mouth, Throat: moist mucous membranes Cardiovascular: no gallops, systolic murmur (1/6 left sternal border.), irregularly irregular (Regular rate, irregular rhythm, atrial fibrillation on monitor), jugular vein distention (4 cm above sternal notch at a 45 degree angle ), pulses symmetric bilat, No carotid bruit Peripheral Pulses: 1+: dorsalis-pedis (R), dorsalis-pedis (L), 2+: carotid (R), carotid (L) Respiratory: other (Lungs are clear bilateral, no rhonchi, rales, or wheezing noted.) Gastrointestinal: normoactive bowel sounds Skin: warm, No no edema (+2 peripheral edema bilateral lower extremities to knees.) Neurologic: AAOx3 Psychiatric: cooperative, interactive, following commands ICD10 Worksheet Patient Problems: Problems Problem Status Onset Atrial flutter Acute Tachycardia Acute Elevated troponin Acute Congestive heart failure Acute Hyperkalemia Acute
[2017-08-25] MEDS ORDERED: LIDOCAINE 1% 300 MG/30 ML SDV ONE (14:43)
--- NOTE | 2017-08-25 15:45 | ASMTCMCOM ---
CM Note CM Note Notes: 08/25/2017 Case Management Note Reviewed chart and discussed in rounds. There are no case management d/c needs identified at this time d/t pt age, activity levels prior to admission and family support. PT is recommending home. Case Management d/c poc: remains home independent with follow up as directed. Case Management available if needs change. Date Signed: 08/25/2017 03:45 PM Electronically Signed By:Elena Barba RN
--- NOTE | 2017-08-25 17:50 | HOSPPROG ---
Hospitalist Progress Note Assessment/Plan: DIAGNOSES: # acute on chronic S CHF, EF 25% # a-flutter, RVR s/p DCCV, currently NSR; chads Vasc score indicates anticoagulation long-term # pleural effusion due to CHF - -2 L of fluid removed today by thoracentesis, with somewhat bloody # CAD s/p CABG, with acute issues as above, no angina - on asa, metop, statin - trop elevated, cards plans outpatient stress # VHD - mod MR, mod-severe TR # AHRF - now on RA # DM - glucs controlled, not on treatment here metformin held due to his renal insufficiency - his metformin should be able to resume safely at this point # supratherapeutic INR on admission, mostly reversed for his thoracentesis, will now and he need to hold anticoagulant until we see what's going to happen in terms of any possible bleeding into the right hemithorax over # chronic kidney disease with mild fluctuations and renal function here, will need to be watched closely with his diuresis The patient is certainly doing well with ongoing successful diuresis, and we did get a good bit of fluid out of his chest. Still concerning that he had a bloody tap today from his chest and will need to watch closely his hemodynamics and blood count and will hold his anticoagulant until we see that that is clearly stable. In addition with the removal of 2 L of fluid at 1 sitting there is a possibility of precipitating some pulmonary edema in the right lung and will watch closely for that. I have notified the patient of these issues and asked him to contact if this if he starts to develop any dyspnea lightheadedness increased pain or other concerning symptoms Reviewed with Ned Avina of cardiology today PLANS: - continue metoprolol - continue off anticoagulant for now, follow for bleeding as above - cont lasix 40 IV bid - I have asked him to try some Hair stockings and he is willing with some reluctance - cont lisinopril - continue to monitor renal function and potassium daily while on IV Lasix SUBJECTIVE: Feels notably better with his breathing after removal of 2 L of pleural fluid from his right thorax Mild ache from the needle poke but no other discomfort related to that procedure No chills or sore cough OBJECTIVE Vitals reviewed: Intermittent borderline high systolic pressures, otherwise vitals stable without fever 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, 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: Intermittently has continued have more atrial fibrillation but with good rate control, otherwise sinus rhythm I&O greater than 4 L out so far past 24 hr and diuresis Exam: alert oriented skin warm dry color ok resps not labored lungs better breath sounds in the right chest today than yesterday heart regular abd soft nondistended nontender, bowel sounds present limbs warm, still with fair bit of pitting edema both legs from the knees down to the feet, stasis dermatitis findings are improving slowly iv site ok Laboratory data: Creatinine down better to 1.1 with BUN further improved at 25, otherwise stable chemistry and CBC I reviewed the patient's thoracentesis with Dr. Fatimah Atkins. She did remove 2 L of fluid from the right hemithorax but this was somewhat bloody. Is unclear if this was traumatic or not. Objective: Vital Signs Temp Pulse Resp BP Pulse Ox 36.3 C 87 16 121/68 H 93 08/25/17 16:15 08/25/17 16:15 08/25/17 16:15 08/25/17 16:15 08/25/17 16:15 Laboratory Results 08/25/17 11:11 08/25/17 04:20 08/24/17 08/25/17 08/26/17 06:59 06:59 06:59 Intake Total 1525 2130 350 Output Total 5875 6200 3700 Balance -4350 -4070 -3350 PT 19.6 SEC (12.0-15.0) H 08/25/17 04:20 INR 1.65 (0.83-1.16) H 08/25/17 04:20 - Time Spent With Patient Time Spent with Patient: greater than 35 minutes Time Spent with Patient: Greater than 35 minutes spent on this patients care, greater than 50% of time spent counseling, educating, and coordinating care regarding the above mentioned plan. ICD10 Worksheet Patient Problems: Problems Problem Status Onset Atrial flutter Acute Congestive heart failure Acute Elevated troponin Acute Hyperkalemia Acute Tachycardia Acute
[2017-08-26 06:16] LABS: PLATELET COUNT 169 10^3/uL (150-400)
[2017-08-26 06:26] LABS: INR 1.37 (0.83-1.16)
[2017-08-26] MEDS ORDERED: MAGNESIUM SULF 2 GM/WATER 50 ML IV ONE (07:21)
[2017-08-26] MEDS: METOPROLOL SUCCINATE XR 50 MG TAB PO SCH (08:41)
[2017-08-26] MEDS: MULTIVITAMINS 1 EACH TAB PO SCH (08:42)
[2017-08-26] MEDS: OMEGA-3 FATTY ACIDS 1,000 MG CAP PO SCH (08:42)
[2017-08-26] MEDS: SPIRONOLACTONE 25 MG TAB PO SCH (08:42)
[2017-08-26] MEDS: PANTOPRAZOLE SODIUM 40 MG TAB PO SCH (08:42)
[2017-08-26] MEDS: LISINOPRIL 5 MG TAB PO SCH (08:42)
[2017-08-26] MEDS: POTASSIUM CL 20 MEQ TAB PO SCH ×3 (08:42→12:37)
[2017-08-26] MEDS: ATORVASTATIN CALCIUM 10 MG TAB PO SCH (08:42)
[2017-08-26] MEDS: ASPIRIN 81 MG CHEWABLE TAB PO SCH (08:42)
[2017-08-26] MEDS: TORSEMIDE 20 MG TAB PO SCH (10:38)
[2017-08-26] MEDS: ENOXAPARIN 100 MG/ML SYR SC SCH ×2 (12:36→21:40)
--- NOTE | 2017-08-26 14:35 | PDCARPN ---
Cardiology Progress Note Chief Complaint: Patient reports he wants to go home. Assessment/Plan: Assessment: 72-year-old male with history of CAD status post CABG in 2012, ischemic cardiomyopathy, valvular heart disease , paroxysmal atrial fibrillation, admitted August 18 with decompensated heart failure and atrial fibrillation RVR. Echocardiogram 08/18/2017 showing EF of 20-25% with global hypokinesis septal dyskinesis, moderately dilated RV, moderately reduced RV function , flattened intraventricular septum consistent with RV pressure overload, LA was moderately dilated, RA is moderately dilated, moderate MR, moderate to severe TR , pulmonary artery pressure normal. ELVIS/cardioversion done on 08/19/2017 showed if continue to be 20-25%, severely reduced RV function , negative for intracardiac shunting, no thrombus in left atrial appendage, moderate MR, mild TR, mobile echodensity with the non coronary cusp of the aortic valve, review with Dr Santiago, felt not to be vegetation. Successfully converted back to sinus rhythm , with cardioversion. Chest CT on 08/22/2017 large right and moderate left pleural effusion with complete atelectasis of the right lower lobe run moderate right mid in left lower lobe atelectasis with no definitive evidence of pneumonia. Noted on admission to have BNP of 5560, troponin elevation initially of 0.131, peaking at 0.157. No symptoms suggesting of angina since admission.Patient underwent so thoracentesis on 08/25/2017 with 2.4 L of serosanguineous removed from right-sided pleura effusion. Today: Anticoagulation held last night due to serosanguineous fluid from thoracentesis. Repeated chest x-ray showing no delayed pneumothorax , interim development of patch alveolar consolidation in the right middle lobe since chest x-ray yesterday. Laboratory studies show H&H stable status post thoracentesis at 17.7 and 52.7. INR is 1.37, sodium 141, potassium 3.2, chloride decreased at 89, CO2 38, BUN 28, creatinine 1.1, repeated BNP is 4150. Patient refuses to wear telemetry monitoring , but pulse is irregular, but rate within normal limits. Patient's weight is down approximately 4.3 kilos from yesterday, at 93 kilos. Output is greater than input at 3 L deficit from yesterday. Patient reports significant improvement in shortness of breath, denies of any chest pressure or pain. Continues to have +2 to 3 peripheral edema of lower extremities, but only up to knees at this time. Plan: 1. Acute on chronic systolic heart failure: EF is 25%. Moderate RV dysfunction. Patient continues to diurese well with IV Lasix. Weight is down 4.3 kilos from yesterday. Continues to have peripheral edema. No JVD on physical examination. Transitioned over to torsemide today at 40 mg p.o. q.day. Potassium and magnesium replacement therapy ordered. Continue on metoprolol succinate, lisinopril, and Aldactone as prescribed. Repeat BMP in a.m.. 2. CAD: Troponin peaking at 0. 157 ,trending downward. Patient reporting no symptoms suggesting of angina. More likely due to flow mismatch due to heart failure. Will plan for patient to undergo MPI study for further risk stratification as an outpatient. Continue on aspirin and metoprolol succinate. 3. Pleural effusion: Thoracentesis done yesterday with 2.4 L removed from right pleural space. Repeated chest x-ray today showing the development of patch alveolar consolidation in right mid lobe. No delayed pneumothorax. No signs of hemothorax. Discussed with Dr Herman, patient afebrile, showing no signs of pneumonia. Feeling potentially this is due to reexpansion of the right lung post effusion removal. Recommend repeating x-ray a few days. IS q 1 hour while awake 4. Atrial fibrillation: Status post cardioversion, unfortunately converting back to atrial fibrillation, but well rate controlled on current medication regime. Will continue on current dose of metoprolol succinate. Continue diuresing for heart failure , potentially in a month, consideration repeating cardioversion when he is more euvolemic. As for anticoagulation, has been on hold for thoracentesis. H&H stable, no delayed pneumothorax, no hemothorax on chest x-ray. Restarted on anticoagulation of warfarin, will bridge with Lovenox. Have discussed with the patient the importance of being on continuous cardiac monitoring while in the hospital. He informs me he will think about it , and consider wearing it for the rest this hospitalization. 5. Hypertension: Blood pressure fairly well controlled, continue to monitor. 6. Diabetes: Management per hospital services. 7. Hyperlipidemia: Continue on statin therapy. 8. Valvular heart disease: Moderate MR, moderate to severe TR , improvement with diuresis. The patient potentially will be discharged tomorrow. Have discussed with discharge planning, who have been in contact with transitional care. Patient will knee weekly follow-ups with Cardiology for the next 4 weeks. 08/26/17 14:25 Subjective: Patient reports no chest pressure or pain. Reports significant improvement in shortness of breath. He is able to walk 2-300 feet without stopping for shortness of breath. Reports continuation of peripheral edema to lower extremities, but significant improvement since hospitalization. Denies of any palpitations, lightheadedness, near-syncope, or syncopal events. Reviewed/Discussed With: hospitalist (Dr Wilkins), other (Dr Herman and Dr Chacon) Objective: Vital Signs (8 Hrs) Temp Pulse Resp BP Pulse Ox 08/26/17 12:00 36.3 C 81 16 91/61 L 91 L 08/26/17 11:23 87 L 08/26/17 07:35 36.8 C 71 15 97/72 L 83 L Intake/Output (24 Hrs) 08/25/17 08/26/17 08/27/17 05:59 05:59 05:59 Intake Total 2130 750 Output Total 6200 4100 Balance -4070 -3350 Intake: Oral (ml) 2130 750 IV Intake (ml) 0 Output: Urine (ml) 6200 1650 Toilet 4800 400 Urinal 1400 1250 Thoracentesis 2450 Other: Weight 97.7 kg 93 kg Number of Stools Toilet 1 Urinal 1 Result Diagrams: 08/26/17 05:55 08/26/17 05:55 - Physical Exam Constitutional: WDWN, no apparent distress Ears, Nose, Mouth, Throat: moist mucous membranes Cardiovascular: no rubs, systolic murmur (1 to 2/6 along left sternal border.), irregularly irregular (Regular rate irregular rhythm.), jugular vein distention (4-5 cm above sternal notch at a 45 degree angle.), pulses symmetric bilat, No carotid bruit Peripheral Pulses: 1+: dorsalis-pedis (R), dorsalis-pedis (L), 2+: carotid (R), carotid (L) Respiratory: other (Diminished in right lower lobe, no rhonchi, rales, or wheezing noted. No accessary muscle use, no intercostal muscle retraction noted. ) Gastrointestinal: normoactive bowel sounds, No tenderness Skin: warm, No no edema (+2 peripheral edema bilateral lower extremities to knees.) Neurologic: AAOx3 Psychiatric: cooperative, following commands ICD10 Worksheet Patient Problems: Problems Problem Status Onset Atrial flutter Acute Tachycardia Acute Elevated troponin Acute Congestive heart failure Acute Hyperkalemia Acute
[2017-08-26] MEDS ORDERED: WARFARIN SODIUM 2.5 MG TAB PO ONE (16:00)
[2017-08-26] MEDS: WARFARIN SODIUM 5 MG TAB PO SCH (16:13)
--- NOTE | 2017-08-26 17:15 | HOSPPROG ---
Hospitalist Progress Note Assessment/Plan: DIAGNOSES: # acute on chronic S CHF, EF 25% # a-flutter, RVR s/p DCCV, currently NSR; chads Vasc score indicates anticoagulation long-term # pleural effusion due to CHF - -status post 2 L right thoracentesis August 25 # CAD s/p CABG, with acute issues as above, no angina - on asa, metop, statin - trop elevated, cards plans outpatient stress # VHD - mod MR, mod-severe TR # AHRF - now on RA # DM - gluc reasonably controlled despite being off of his metformin due to renal issues here # supratherapeutic INR on admission, mostly reversed for his thoracentesis, will now and he need to hold anticoagulant until we see what's going to happen in terms of any possible bleeding into the right hemithorax over # chronic kidney disease has remained stable for the last couple of days The patient is certainly doing well with ongoing successful diuresis, and we did get a good bit of fluid out of his chest. Still concerning that he had a bloody tap today from his chest and will need to watch closely his hemodynamics and blood count and will hold his anticoagulant until we see that that is clearly stable. In addition with the removal of 2 L of fluid at 1 sitting there is a possibility of precipitating some pulmonary edema in the right lung and will watch closely for that. I have notified the patient of these issues and asked him to contact if this if he starts to develop any dyspnea lightheadedness increased pain or other concerning symptoms Reviewed with Ned Avina of cardiology today PLANS: - continue metoprolol - anticoagulant resume at this time and will follow with bridging - cont lasix 40 IV bid - repeat potassium and renal function tests are - cont lisinopril - continue to monitor renal function and potassium daily while on IV Lasix -will plan on resuming metformin as he goes home as long all function stable tomorrow SUBJECTIVE: Continues to gradually feel better with his breathing and ability to ambulate Appetite good No chills or sweats No palpitations or chest pain He was on able to keep the Hair stockings on due to discomfort as a OBJECTIVE Vitals reviewed: Blood pressure is much better now, otherwise vitals stable without fever [employer], my review: He has been refusing to wear monitor but he does have an irregular pulse though in good range indicating good rate control I&O continues with excellent diuresis each day Exam: alert oriented skin warm dry color ok resps not labored lungs fairly clear breath sounds throughout few rales at the right base heart regular abd soft nondistended nontender, bowel sounds present limbs warm, despite the ongoing significant diuresis he still has quite a bit of pitting edema in both legs and some slowly healing stasis changes iv site ok Laboratory data: Potassium low 3.2 requiring ongoing replacement, creatinine stable 1.1 Stable with no changes I reviewed chest x-ray images from today, he does have a small patch of pulmonary edema and the right lower lobe, likely induced by removal of large amount of pleural fluid 2 L yesterday, no evidence of recurrent effusion, bleeding, infection Objective: Vital Signs Temp Pulse Resp BP Pulse Ox 36.5 C 95 15 105/70 87 L 08/26/17 16:00 08/26/17 16:00 08/26/17 16:00 08/26/17 16:00 08/26/17 16:00 Laboratory Results 08/26/17 05:55 08/26/17 05:55 08/25/17 08/26/17 08/27/17 06:59 06:59 06:59 Intake Total 2130 750 Output Total 6200 4100 Balance -4070 -3350 PT 17.0 SEC (12.0-15.0) H 08/26/17 05:55 INR 1.37 (0.83-1.16) H 08/26/17 05:55 ICD10 Worksheet Patient Problems: Problems Problem Status Onset Atrial flutter Acute Congestive heart failure Acute Elevated troponin Acute Hyperkalemia Acute Tachycardia Acute
[2017-08-26] MEDS: ACETAMINOPHEN 325 MG TAB PO PRN (17:40)
[2017-08-27 06:04] LABS: INR 1.31 (0.83-1.16); PROTIME(PATIENT) 16.5 SEC (12.0-15.0)
[2017-08-27] MEDS ORDERED: MAGNESIUM SULF 1 GM/DEXTROSE 100 ML IV ONE (07:46)
[2017-08-27] MEDS: OMEGA-3 FATTY ACIDS 1,000 MG CAP PO SCH (08:30)
[2017-08-27] MEDS: ENOXAPARIN 100 MG/ML SYR SC SCH ×2 (08:30→11:29)
[2017-08-27] MEDS: METOPROLOL SUCCINATE XR 50 MG TAB PO SCH (08:30)
[2017-08-27] MEDS: SPIRONOLACTONE 25 MG TAB PO SCH (08:30)
[2017-08-27] MEDS: ATORVASTATIN CALCIUM 10 MG TAB PO SCH (08:30)
[2017-08-27] MEDS: PANTOPRAZOLE SODIUM 40 MG TAB PO SCH (08:30)
[2017-08-27] MEDS: TORSEMIDE 20 MG TAB PO SCH (08:30)
[2017-08-27] MEDS: LISINOPRIL 5 MG TAB PO SCH (08:31)
[2017-08-27] MEDS: MULTIVITAMINS 1 EACH TAB PO SCH (08:31)
[2017-08-27] MEDS: ASPIRIN 81 MG CHEWABLE TAB PO SCH (08:31)
[2017-08-27] MEDS: POTASSIUM CL 20 MEQ TAB PO SCH ×3 (08:34→13:04)
--- NOTE | 2017-08-27 09:09 | CPEKG ---
Heart Rate: 90 RR Interval: 667 QRSD Interval: 110 QT Interval: 412 QTC Interval: 504 QRS [place]: -52 T Wave [place]: 108 EKG Severity - ABNORMAL ECG - EKG Impression: ATRIAL FIBRILLATION, V-RATE 71-129 EKG Impression: MULTIFORM VENTRICULAR PREMATURE COMPLEXES EKG Impression: LEFT ANTERIOR FASCICULAR BLOCK EKG Impression: PROBABLE ANTEROSEPTAL INFARCT, AGE INDETERM Electronically Signed By: Sky Crespo 29-Aug-2017 08:59:40
[2017-08-27] MEDS ORDERED: TORSEMIDE 20 MG TAB PO ONE (11:15)
[2017-08-27 11:48] VITALS: BP 103/77; PULSE 96; RESP 14; TEMP 97.3; O2SAT 91
--- NOTE | 2017-08-27 11:54 | PDCARPN ---
Cardiology Progress Note Chief Complaint: Patient reports continue improvement in his dyspnea on exertion. Has had no significant change in peripheral edema. Assessment/Plan: Assessment: 72-year-old male with history of CAD status post CABG in 2012, ischemic cardiomyopathy, valvular heart disease , paroxysmal atrial fibrillation, admitted August 18 with decompensated heart failure and atrial fibrillation RVR. Echocardiogram 08/18/2017 showing EF of 20-25% with global hypokinesis septal dyskinesis, moderately dilated RV, moderately reduced RV function , flattened intraventricular septum consistent with RV pressure overload, LA was moderately dilated, RA is moderately dilated, moderate MR, moderate to severe TR , pulmonary artery pressure normal. ELVIS/cardioversion done on 08/19/2017 showed if continue to be 20-25%, severely reduced RV function , negative for intracardiac shunting, no thrombus in left atrial appendage, moderate MR, mild TR, mobile echodensity with the non coronary cusp of the aortic valve, review with Dr Santiago, felt not to be vegetation. Successfully converted back to sinus rhythm , with cardioversion. Chest CT on 08/22/2017 large right and moderate left pleural effusion with complete atelectasis of the right lower lobe run moderate right mid in left lower lobe atelectasis with no definitive evidence of pneumonia. Noted on admission to have BNP of 5560, troponin elevation initially of 0.131, peaking at 0.157 then trending downward. No symptoms suggesting of angina since admission.Patient underwent so thoracentesis on 2017 with 2.4 L of serosanguineous removed from right-sided pleura effusion. Today: Patient's weight is up slightly to 93.9 (0.9 kilos from yesterday) net output 50 mL. Laboratory studies drawn today show sodium 138, potassium 3.2, chloride remains low but stable at 89 CO2 stable at 38 BUN of mildly to 34, creatinine 1.2. Magnesium was 1.9. INR remains subtherapeutic at 1.3. Electrocardiogram done today showing atrial fibrillation left anterior fascicular block poor R-wave progression anterior leads, occasional PVC, ventricular rate at 90 beats per minute. Patient denies of any chest pressure or pain. Patient able to walk 200 feet without stopping for rest. He reports significant improvement in his dyspnea on exertion. Continues to have +2 to 3 peripheral edema bilateral lower extremities to knees. Patient has refused to wear a continuous cardiac monitoring leads for the last day. Patient insisted to go home today. Plan: 1. Acute on chronic systolic heart failure: EF is 25%. Moderate RV dysfunction. Transition to torsemide yesterday, O>I but net was only 50 mL. Weight is up 0.9 kilos today. Increase torsemide to 60 mg p.o. today. Continue on metoprolol succinate, lisinopril, and Aldactone as prescribed. Patient is planning to be discharged home. We have discussed the importance of daily weights, he is to notify our office if he gains more than 2 lb in a day or 5 lb in a week. Potassium and magnesium supplement ordered today. Have also ordered for him to start 20 mEq of potassium twice daily for when he goes home. Will have him repeat BMP and magnesium level when he comes in for INR drawn on August 31. Have scheduled him a follow-up appointment to see Dr. Lebron ([facility]'s heart failure specialist) on September 03. 2. CAD: Troponin peaking at 0. 157 ,trending downward. Patient reporting no symptoms suggesting of angina. More likely due to flow mismatch due to heart failure. Continue on aspirin and metoprolol succinate. Have scheduled him to undergo MPI study at [facility] on September 04. 3. Pleural effusion: Thoracentesis done yesterday with 2.4 L removed from right pleural space on 08/25/2016. Encouraged patient incentive spirometer q.1 hour while awake. Continue diuresis as above. Will consider repeating chest x- ray as an outpatient in a week. 4. Atrial fibrillation: Status post cardioversion, unfortunately converting back to atrial fibrillation, but well rate controlled on current medication regime. Will continue on current dose of metoprolol succinate. Continue diuresing for heart failure , potentially in a month, consideration repeating cardioversion when he is more euvolemic (discussed with Dr. Santiago). As for anticoagulation, it had been on hold for his thoracentesis. Last evening, resumed on warfarin therapy with extra 2.5 mg to his daily dose. He has also been bridged with Lovenox since yesterday. No significant change in INR today. Recommend we give him an extra 2.5 mg of warfarin today. Plan on continue bridging him with Lovenox until tomorrow night. Have him follow up in [facility] on August 31. 5. Hypertension: Blood pressure fairly well controlled, continue to monitor. 6. Diabetes: Management per hospital services. 7. Hyperlipidemia: Continue on statin therapy. 8. Valvular heart disease: Moderate MR, moderate to severe TR , improvement with diuresis. Patient potentially being discharged home today, have discussed with him the necessity for him to be medication compliant. We have discussed all his follow- up office appointments. He is to notify us if he has any significant weight gain. 08/27/17 11:43 Subjective: Patient reports no chest pressure or pain. Reports office continue improvement in his dyspnea on exertion. Denies of any palpitations, lightheadedness, near- syncope, or syncopal events. Denies of any symptoms suggestive of TIA. Reviewed/Discussed With: hospitalist (Dr Wilkins), other (Dr Herman and Dr Chacon) Objective: Vital Signs (8 Hrs) Temp Pulse Resp BP Pulse Ox 08/27/17 07:29 36.3 C 93 16 110/73 89 L 08/27/17 03:57 36.4 C 97 18 111/78 92 Intake/Output (24 Hrs) 08/26/17 08/27/17 08/28/17 05:59 05:59 05:59 Intake Total 750 1750 Output Total 4100 1800 Balance -3350 -50 Intake: Oral (ml) 750 1750 Output: Urine (ml) 1650 1800 Toilet 400 1800 Urinal 1250 Thoracentesis 2450 Other: Weight 93 kg 93.9 kg Number of Voids Toilet 1 Number of Stools Toilet 2 Result Diagrams: 08/26/17 05:55 08/27/17 05:03 - Physical Exam Constitutional: no apparent distress, obese Ears, Nose, Mouth, Throat: moist mucous membranes Cardiovascular: no rubs, no gallops, systolic murmur (1/6 Left midsternal chest. ), irregularly irregular (Regular rate, regular rhythm. Atrial fibrillation on continuous cardiac monitoring.), jugular vein distention (4-5 cm above sternal notch.), pulses symmetric bilat, No carotid bruit Peripheral Pulses: 1+: dorsalis-pedis (R), dorsalis-pedis (L), 2+: carotid (R), carotid (L) Respiratory: other (Diminished in right lower lobe, no rhonchi, rales, or wheezing noted.) Gastrointestinal: normoactive bowel sounds Skin: warm, No no edema (+2 to 3 peripheral edema bilateral lower extremities to knees.) Neurologic: AAOx3 Psychiatric: cooperative, interactive, following commands ICD10 Worksheet Patient Problems: Problems Problem Status Onset Atrial flutter Acute Congestive heart failure Acute Elevated troponin Acute Hyperkalemia Acute Tachycardia Acute
[2017-08-27] MEDS: WARFARIN SODIUM 5 MG TAB PO SCH (12:52)
--- NOTE | 2017-08-27 14:12 | PDDCSUM ---
Discharge Summary Discharge Summary: DISCHARGE DIAGNOSES: -acute systolic congestive heart failure, EF 25% -atrial fibrillation and flutter with uncontrolled rapid ventricular rate, persistent - known CAD, no definite sign of infarct or ischemia here but suspicion for possible progression of vascular disease -known valvular heart disease -large right pleural effusion, 2 L removed by thoracentesis -hypertension, uncontrolled -diabetes mellitus type 2 CONSULTANTS: Subha Santiago MD PROCEDURES: Right-sided thoracentesis, ultrasound-guided, 2 L removed Echocardiogram Electric cardioversion for AFib with sinus rhythm but went back to AFib 2 days later HOSPITAL COURSE SUMMARY: This patient with known chronic heart disease came in with rapid atrial fibrillation and systolic congestive heart failure with severe volume overload, massive edema, very large pleural effusion, pulmonary edema. Is admitted the hospital and treated for rate control which were able to achieve. There is an attempted cardioversion which was successful after a ELVIS looks good, however he reverted back to AFib 2 days later and has remained in AFib ever since. He is not felt to be a candidate for antiarrhythmics. The patient was treated with aggressive IV diuretics and a low-salt diet. Recorded fluid balance showed 12 L fluid removed and weights showed 10 kg removed during his hospital stay. He did have a thoracentesis for 2 L from his right hemithorax, which resulted briefly in a small patch of pulmonary edema a post procedure but he tolerated this very well. At this point the patient is much improved and stable for discharge to home. Is strongly recommended that he start keeping track of daily weights and record them to bring in the clinic. We have set up an appointment for him next week in clinic, and made very clear that feel strongly that if he does not keep very close follow up with Cardiology in clinic he will end up back in the hospital. He is already on what sounds like a good low-salt diet at home. We have changed his medications to be more aggressive with diuresis and rate control. There plans to have an outpatient stress test and this is actually already been scheduled for next week PENDING TEST RESULTS: None MEDICATION CHANGES: Demadex 60 mg daily Aldactone 12.5 mg twice daily Lasix discontinued Metoprolol 75 mg daily added Protonix added FOLLOW-UP PLAN: Appointment in Heart failure Clinic next week has been made Appointment is already made for cardiac stress test next week Greater than 35 minutes bedside and care coordination time today
--- NOTE | 2017-08-27 16:48 | ASDISCHSUM ---
Discharge Information Plan Status:Home with No Needs Medically Cleared to Leave:08/26/2017 Discharge Date:08/27/2017 01:07 PM CM D/C Disposition:Home, Routine, Self-Care ADT D/C Disposition:Home, Routine, Self-Care Projected Discharge Date:08/27/2017 12:00 AM Transportation at D/C:Family Discharge Delay Reason: Follow-Up Date:08/27/2017 12:00 AM Discharge Slot: Final Diagnosis: Placement Information Patient Contact Information Contact Name:JESSICA Relationship:Roz Address: Work Phone: City: [facility] Phone: State/[facility] [facility] Code:[place] Email: Financial Information Financial Class:Medicare Advantage Plans Primary Plan Desc:[facility] ADVANTAGE PLANS Primary Plan Number:[id number] Secondary Plan Desc: Secondary Plan Number: Assessment Information [facility] Progress Note CM Note CM Note Notes: 08/19/2017 Case Management Note Reviewed chart. PT recommending d/c to home. Pt has family and friend support. Case Management d/c poc: Home independent with follow up as directed. Case Management available if needs change. Date Signed: 08/19/2017 05:57 PM Electronically Signed By:Elena Barba RN [facility] CM Progress Note CM Note CM Note Notes: CM spoke jolly Frank RN regarding d/c POC. Plan remains the same. Pt will d/c home independent. Therapies continue to recommend home without any needs. CM available for changes. Plan: Independent Date Signed: 08/21/2017 03:25 PM Electronically Signed By:TATYANA Burns [facility] CM Progress Note CM Note CM Note Notes: Pt may need thoracentesis for pleural effusion. Planis currently home with no DC needs. CM will follow in case plans change. Date Signed: 08/23/2017 04:27 PM Electronically Signed By:Lexy Angulo LCSW [facility] CM Progress Note CM Note CM Note Notes: 08/25/2017 Case Management Note Reviewed chart and discussed in rounds. There are no case management d/c needs identified at this time d/t pt age, activity levels prior to admission and family support. PT is recommending home. Case Management d/c poc: remains home independent with follow up as directed. Case Management available if needs change. Date Signed: 08/25/2017 03:45 PM Electronically Signed By:Elena Barba RN Intervention Information
[2017-08-28] MEDS ORDERED: POTASSIUM CL 20 MEQ TAB PO SCH (09:00)
[2017-08-28] MEDS ORDERED: TORSEMIDE 20 MG TAB PO SCH (10:00)
== END 2017-08-27 13:07 | disposition home or self-care (01) | DRG 291 ==
LOC: F2W 16:40
PROVIDERS: ADMIT Hospitalist; ATTEND Internal Medicine
PROC: B246ZZ4 Ultrasonography of Right and Left Heart, Transesophageal (ICD-10-PCS; principal; 2017-08-19)
PROC: 5A2204Z Restoration of Cardiac Rhythm, Single (ICD-10-PCS; principal; 2017-08-19)
PROC: 0W993ZZ Drainage of Right Pleural Cavity, Percutaneous Approach (ICD-10-PCS; 2017-08-25)
DX: I50.23 Acute on chronic systolic (congestive) heart failure (principal); J91.8 Pleural effusion in other conditions classified elsewhere; J96.01 Acute respiratory failure with hypoxia; I48.1 Persistent atrial fibrillation; I48.92 Unspecified atrial flutter; Z79.01 Long term (current) use of anticoagulants; I25.10 Atherosclerotic heart disease of native coronary artery without angina pectoris; Z95.1 Presence of aortocoronary bypass graft; I25.5 Ischemic cardiomyopathy; I08.1 Rheumatic disorders of both mitral and tricuspid valves; E87.5 Hyperkalemia; R79.1 Abnormal coagulation profile; T45.515A Adverse effect of anticoagulants, initial encounter; B09 Unspecified viral infection characterized by skin and mucous membrane lesions; I10 Essential (primary) hypertension; E11.9 Type 2 diabetes mellitus without complications; E66.09 Other obesity due to excess calories; Z68.35 Body mass index [BMI] 35.0-35.9, adult
CPT/HCPCS: 96374; 97116-GP; 97161-GP; 97165-GO; 97535-GO; G8978-GP-CJ; G8979-GP-CI; G8980-GP-CI; G8987-GO-CI; G8988-GO-CI; G8989-GO-CI; J0456; J0696; J1650; J1940; J2704; J3475

== ENCOUNTER 2017-09-28 09:48 | Day surgery (SDC) | payer OTHER ==
[2017-09-28] MEDS ORDERED: ATROPINE SULFATE 1 MG/10 ML SYR IVP ONE (09:54)
--- NOTE | 2017-09-28 10:11 | CPEKG ---
Heart Rate: 86 RR Interval: 698 QRSD Interval: 102 QT Interval: 416 QTC Interval: 498 QRS [place]: -54 T Wave [place]: 83 EKG Severity - ABNORMAL ECG - EKG Impression: ATRIAL FIBRILLATION, V-RATE 62-121 EKG Impression: LEFT ANTERIOR FASCICULAR BLOCK EKG Impression: BORDERLINE PROLONGED QT INTERVAL Electronically Signed By: Mazin Herman 28-Sep-2017 10:22:29
[2017-09-28 10:32] LABS: INR 2.64 (0.83-1.16); PROTIME(PATIENT) 28.1 SEC (12.0-15.0)
[2017-09-28] MEDS ORDERED: WARFARIN SODIUM 5 MG TAB PO ONE (11:00)
[2017-09-28] MEDS ORDERED: PROPOFOL 200 MG/20 ML VIAL ONE (11:17)
--- NOTE | 2017-09-28 11:20 | PDANEPAE ---
ANE Past Medical History - Cardiovascular History Hx Coronary Artery / Peripheral Vascular Disease: Yes Hx CHF / Valvular Disease: Yes - Pulmonary History Hx Oxygen in Use at Home: No Hx Sleep Apnea: No - Endocrine History Hx Diabetes: Yes - Chronic Pain History Chronic Pain: No ANE Review of Systems Review of Systems: ANE Patient History - Allergies Allergies/Adverse Reactions: No Known Allergies Allergy (Verified 08/18/17 10:57) - Home Medications Home Medications: Aspirin [Aspirin 325 mg (*)] 325 mg PO DAILY 02/23/13 [Last Taken 08/18/17] [place]-3 Fatty Acids [Fish Oil 1000 mg (*)] 1,000 mg PO DAILY 02/23/13 [Last Taken 08/18/17] Lisinopril [Zestril 5 mg (*)] 5 mg PO DAILY 08/18/17 [Last Taken 08/18/17] Multivitamins [Multivitamin (*)] 1 each PO DAILY 08/18/17 [Last Taken 08/18/17] Simvastatin [Zocor] 20 mg PO DAILY 08/18/17 [Last Taken 08/18/17] Warfarin Sodium [Coumadin 2.5MG (*)] 2.5 mg PO SUTUTHFRSA 08/18/17 [Last Taken 08/18/17] Warfarin Sodium [Coumadin 5MG (*)] 5 mg PO MOWE 08/18/17 [Last Taken 08/17/17] metFORMIN HCL [Glucophage 500 mg (*)] 1,000 mg PO DAILY 08/18/17 [Last Taken ] metFORMIN HCL [Glucophage 500 mg (*)] 500 mg PO DAILY18 08/18/17 [Last Taken ] - Anes Hx Anes Hx: no prior problems - Smoking Hx Smoking Status: Former smoker ANE Labs/Vital Signs - Labs Result Diagrams: 09/28/17 10:14 - Vital Signs Height: 175 cm Weight: 86.2 kg ANE Physical Exam - Airway Neck exam: FROM Mallampati Score: Class 3 Mouth exam: normal dental/mouth exam - Pulmonary Pulmonary: no respiratory distress, no rales or rhonchi, clear to auscultation - Cardiovascular Cardiovascular: irregularly irregular - ASA Status ASA Status: III ANE Anesthesia Plan Anesthesia Plan: GA with mask
--- NOTE | 2017-09-28 11:37 | PDTEE1 ---
ELVIS Cardioversion Procedure Indications: atrial fibrillation Consent: signed and in chart Anticoagulation: warfarin Procedural Details: Pads were placed in anterior-posterior position. ELVIS probe was advanced and standard images obtained. There is no evidence of left atrial or left atrial appendage thrombus. Synchronized cardioversion attempt #1: 300J Results: normal sinus rhythm Conclusions: successful ELVIS cardioversion Patient Problems: Problems Problem Status Onset Atrial flutter Acute Congestive heart failure Acute Elevated troponin Acute Hyperkalemia Acute Tachycardia Acute
[2017-09-28] MEDS ORDERED: fentaNYL 100 MCG/2 ML INJ IVP PRN (12:00)
[2017-09-28] MEDS ORDERED: NALOXONE HCL 0.4 MG/ML INJ IVP PRN (12:00)
[2017-09-28] MEDS ORDERED: ONDANSETRON 4 MG/2 ML VIAL IVP PRN (12:00)
--- NOTE | 2017-09-28 12:01 | POSTANESTH ---
Post Anesthetic Evaluation Cardiovascular Status: Normal, Stable Respiratory Status: Normal, Stable, Similar to Pre-op Cond. Level of Consciousness/Mental Status: Can Participate in Eval, Mildly Sleepy, Arousable Pain Control: Adequate, Prn Tx Ordered Nausea/Vomiting Control: Adequate, Prn Tx Ordered Complications Possibly Related to Anesthesia: None Noted
--- NOTE | 2017-09-28 12:40 | CPR ---
[f rep st] NONINVASIVE CARDIAC PROCEDURE REPORT DATE OF PROCEDURE: 09/28/2017 PROCEDURE PERFORMED: Electrical cardioversion. CONSENT: Signed. Risks, benefits, and alternatives discussed with patient. He wishes to proceed. TECHNICAL DIFFICULTIES: None. MEDICATIONS USED: Propofol 100 mg per anesthesia service with continuous pulse oximetry and hemodyna olivia monitoring. DESCRIPTION OF PROCEDURE: The patient had a transesophageal echo done immediately beforehand, which demonstrated no evidence of distinct cardiac thrombus. He was in atrial fibrillation with a heart ra te of 83 and a blood pressure of 88/50. While sedated, he received a 300 joule synchronized shock wi th AP biphasic pads. This converted him to sinus rhythm at 62 beats per minute with a post cardiover trini blood pressure of 93/62. He awoke from sedation with no new neurological deficits. FINAL IMPRESSION: Successful cardioversion of atrial fibrillation to sinus rhythm with 300 joule syn chronized shock. PLAN: The patient will be discharged home in 1 hour. His home amiodarone dose will be decreased fro m 200 mg twice daily to 200 mg daily. The rest of his medications are unchanged. He will follow up with me in clinic in 7-10 days with an EKG to ensure he is staying in sinus rhythm. COMPLICATIONS: None. /[id number]/MODL
--- NOTE | 2017-09-28 16:05 | ECHO ---
[email or web address] [address] Main: [phone] Fax: Transesophageal Echocardiography Name: KISHA BELTRAN MR#: [id number] Study Date: 09/28/2017 Study Time: 11:14 AM Date of : 1945 Age: 72 year(s) Height: ( ) Weight: ( ) BSA: Gender: Male Examination: ELVIS Indication: Atrial Fibrillation Image Quality: Contrast: Requested by: Gregorio Victoria Heart Rate: Rhythm: BP: 112 mmHg/75 mmHg Procedure Staff Bank Vault Clerk: Polly Ramos TRACEY Reading Physician: Gregorio Victoria MD Requesting Provider: ELVIS Exam Details Measurements: Chambers Valvular Assessment AV/MV Valvular Assessment TV/PV Normal Normal Normal Name Value Range Name Value Range Name Value Range EF Range: 30 % Additional Measurements: Findings: The ejection fraction is estimated to be 30 %. Right Ventricle: Mildly to moderately reduced right ventricular function. Left Atrial Appendage: No thrombus in left appendage. Spontaneous contrast is present in the left atrial appendage. Mitral Valve: Mild mitral valve regurgitation is present. Aortic Valve: The aortic valve is tri-leaflet. Tricuspid Valve: Mild tricuspid regurgitation is present. Pulmonic Valve: Trivial pulmonic valve regurgitation. Aorta: Patient: KISHA BELTRAN Study Date: 09/28/2017 Page 1 of 2 11:14 AM Mild plaque visualized in the descending aorta.. l1n (No Signature Object) Patient: KISHA BELTRAN Study Date: 09/28/2017 Page 2 of 2 11:14 AM [id number]
--- NOTE | 2017-09-29 08:26 | CPEKG ---
Heart Rate: 63 RR Interval: 952 P-R Interval: 176 QRSD Interval: 106 QT Interval: 472 QTC Interval: 484 P [place]: 9 QRS [place]: -46 T Wave [place]: 100 EKG Severity - ABNORMAL ECG - EKG Impression: SINUS RHYTHM EKG Impression: LEFT ANTERIOR FASCICULAR BLOCK EKG Impression: PROBABLE ANTEROSEPTAL INFARCT, AGE INDETERM EKG Impression: LATERAL LEADS ARE ALSO INVOLVED EKG Impression: BORDERLINE PROLONGED QT INTERVAL EKG Impression: NORMAL SINUS RHYTHM HAS REPLACED ATRIAL FIBRILLATION Electronically Signed By: Mazin Villegas 29-Sep-2017 11:07:27
== END 2017-09-28 13:02 | disposition home or self-care (01) ==
LOC: FCATH 09:48
PROVIDERS: ATTEND Internal Medicine Cardiovascular Disease
PROC: B245ZZ4 Ultrasonography of Left Heart, Transesophageal (ICD-10-PCS; principal; 2017-09-28)
PROC: 5A2204Z Restoration of Cardiac Rhythm, Single (ICD-10-PCS; principal; 2017-09-28)
DX: I48.91 Unspecified atrial fibrillation (principal); I50.22 Chronic systolic (congestive) heart failure; I25.810 Atherosclerosis of coronary artery bypass graft(s) without angina pectoris; I11.0 Hypertensive heart disease with heart failure; E11.9 Type 2 diabetes mellitus without complications; E66.9 Obesity, unspecified; Z95.1 Presence of aortocoronary bypass graft; Z79.01 Long term (current) use of anticoagulants; Z87.891 Personal history of nicotine dependence
CPT/HCPCS: J2704

== ENCOUNTER 2017-11-12 06:38 | Observation (INO) | payer OTHER ==
[2017-11-12] MEDS ORDERED: BACITRACIN IRRIGATION/NS 50,000 UNITS/1,000 ML BTL IRR ONE (06:42)
[2017-11-12] MEDS ORDERED: ceFAZolin 2 GM/SWFI 2 GM/20 ML SYR IVP ONE (06:42)
[2017-11-12] MEDS ORDERED: NS 1,000 ML IV ONE (06:42)
--- NOTE | 2017-11-12 07:01 | CPEKG ---
Heart Rate: 74 RR Interval: 811 QRSD Interval: 98 QT Interval: 424 QTC Interval: 471 QRS [place]: -48 T Wave [place]: 92 EKG Severity - ABNORMAL ECG - EKG Impression: ATRIAL FIBRILLATION -- Recurrent sense September 28, 2017 EKG Impression: LEFT ANTERIOR FASCICULAR BLOCK Electronically Signed By: Julio César aBngura 12-Nov-2017 10:59:28
[2017-11-12 07:27] LABS: PLATELET COUNT 173 10^3/uL (150-400)
[2017-11-12 07:40] LABS: INR 1.22 (0.83-1.16); PROTIME(PATIENT) 15.6 SEC (12.0-15.0)
[2017-11-12] MEDS ORDERED: MIDAZOLAM 2 MG/2 ML VIAL ONE ×2 (08:24→09:06)
[2017-11-12] MEDS ORDERED: LIDOCAINE 1% 300 MG/30 ML SDV ONE (08:24)
[2017-11-12] MEDS ORDERED: BUPIVACAINE 0.5% 30 ML SDV ONE (08:25)
[2017-11-12] MEDS ORDERED: fentaNYL 100 MCG/2 ML INJ ONE ×2 (08:25→09:06)
[2017-11-12] MEDS ORDERED: LIDO/EPI 1% **for epidural** 30 ML SDV ONE (08:25)
--- NOTE | 2017-11-12 08:26 | PDPROPOC ---
Sedation Plan of Care Sedation Plan of Care: vital signs stable, mental status noted, patient educated of risks, benefits, alternatives, patient can tolerate sedation ASA Classification: ASA 3 Planned drugs: fentanyl, midazolam Mallampati Score: Class 3 Mallampati Reference Image: Patient passed 3-3-2 rule?: Yes
[2017-11-12] MEDS: TORSEMIDE 20 MG TAB PO SCH (14:56)
[2017-11-12] MEDS: WARFARIN SODIUM 2.5 MG TAB PO SCH (14:56)
[2017-11-12] MEDS: SACUBITRIL/VALSARTAN 49/51MG 1 EA TAB PO SCH (21:20)
[2017-11-13 04:17] LABS: PLATELET COUNT 149 10^3/uL (150-400)
[2017-11-13 07:41] VITALS: BP 117/61
[2017-11-13] MEDS: SACUBITRIL/VALSARTAN 49/51MG 1 EA TAB PO SCH (08:22)
[2017-11-13] MEDS: TORSEMIDE 20 MG TAB PO SCH (08:23)
[2017-11-13] MEDS: WARFARIN SODIUM 2.5 MG TAB PO SCH (08:25)
--- NOTE | 2017-11-13 08:37 | EPPROC ---
Electrophysiology Procedure Note: PROCEDURE PERFORMED: 1. Implantation of a single ICD 3. Fluoroscopy INDICATION: This is a 72 yr old with CMP EF 30% NYHA II despite optimal meds and hence a candidate for single chamber ICD. PROCEDURE NOTE: Patient presented to the cardiac catheterization laboratory in a fasting, post absorptive state. Cardiac laboratory technology teacher nurse administered moderate sedation. The left infraclavicular area was prepped and draped in the usual sterile fashion. Lidocaine plus bupivacaine was used for local anesthesia. Using a combination of blunt and sharp dissection and electrocautery, the dissection was carried down to the prepectoral fascia. All bleeding was controlled with electrocautery. The pocket was packed with gauze soaked in antibiotic solution. Fluoroscopy was utilized during the entire procedure for venous access and placement of the leads. Using the usual technique, left cephalic vein was accessed and a 7F sheath was placed. Placement of the guidewire into the venous system was confirmed by low- pressure blood return and also by visualizing the guide wire advancing into the inferior vena cava. A purse string suture was applied around the guide wire. An active fixation ventricular lead was advanced into the right ventricular apex and screwed in place. The peel away sheath was removed. Pacing thresholds , sensing parameters and lead impedances were measured. There was no diaphragmatic stimulation at maximum output. The lead was sutured to the prepectoral fascia with 3 nonabsorbable sutures. The pocket was again inspected for any bleeding. The lead was attached to the pacemaker securely. The pacemaker was inserted into the pocket and secured in place with a nonabsorbable suture. Fluoroscopy was performed in FITCH and YAYA planes to verify right-sided placement of the lead. Also fluoroscopy of the pacemaker pocket was performed. The pacemaker pocket was closed in 3 layers with absorbable monocryl sutures. Appropriate dressing was applied. The patient left the cardiac catheterization laboratory in stable condition. Serial Numbers: 1. Device: Biotronik Intica 7VR SN [id number] 2. Ventricular Lead: Biotronik Plexa ProMRI SN [id number] Stimulation Thresholds & Impedance Measurements: 1. Ventricular Lead 11.4mV, 0.5@0.4ms, 579Ohms Sal Pacing Parameters 1. Pacing mode: VVI 2. Lower rate: 60 3. Upper tracking rate: 130 4. Upper sensor rate: 130 Patient Problems: Problems Problem Status Onset Atrial flutter Acute Congestive heart failure Acute Elevated troponin Acute Hyperkalemia Acute Tachycardia Acute
[2017-11-13] MEDS ORDERED: OMEGA-3 FATTY ACIDS 1,000 MG CAP PO SCH (09:00)
[2017-11-13] MEDS ORDERED: metFORMIN HCL 500 MG TAB PO SCH (09:00)
[2017-11-13] MEDS ORDERED: MULTIVITAMINS 1 EACH TAB PO SCH (09:00)
[2017-11-13] MEDS ORDERED: PANTOPRAZOLE SODIUM 40 MG TAB PO SCH (09:00)
[2017-11-13] MEDS ORDERED: METOPROLOL SUCCINATE XR 50 MG TAB PO SCH (09:00)
[2017-11-13] MEDS ORDERED: ATORVASTATIN CALCIUM 10 MG TAB PO SCH (09:00)
[2017-11-13] MEDS ORDERED: SPIRONOLACTONE 25 MG TAB PO SCH (09:00)
[2017-11-13] MEDS ORDERED: ASPIRIN 325 MG TAB PO SCH (09:00)
--- NOTE | 2017-11-13 09:54 | ASMTCASEMG ---
Living Arrangements What is your living Answers: Alone arrangement? Who do you live with? Type Of Residence What kind of residence do Answers: Apartment you live in? Discharge Plan Comments Coordination Status Comments Notes: CM spoke w/ TIA Broussard regarding d/c POC. Pt is a 72 y/o man admitted for CHF. Pt will most likely d/c independent when medically stable. No therapies ordered at this time. CM available for changes. Plan: Independent Date Signed: 11/13/2017 09:54 AM Electronically Signed By:TATYANA Burns
--- NOTE | 2017-11-13 11:05 | GDS ---
[f rep st] DISCHARGE SUMMARY ADMISSION DIAGNOSIS: 1. Ischemic cardiomyopathy with ejection fraction of 30% despite maximum medical therapy. 2. Persistent atrial fibrillation. 3. Peripheral artery disease. 4. Noninsulin dependent diabetes. 5. Hypertension. 6. Dyslipidemia. 7. Obesity. DISCHARGE DIAGNOSIS: 1. Chronic ischemic systolic heart failure with ejection fraction of 30%. 2. Status post AICD Biotronik implantation with single lead. 3. Coronary artery disease. 4. Persistent atrial fibrillation. 5. Peripheral artery disease. 6. Noninsulin dependent diabetes. 7. Mild obesity. 8. Hypertension. 9. Hyperlipidemia. PROCEDURES PERFORMED DURING HOSPITALIZATION: 1. Electrocardiogram. 2. Implantation of a Biotronik single lead AICD with RV lead implantation. 3. Chest x-ray. BRIEF HISTORY: Please see H and P. Briefly, Mr. Head is a 72-year-old male with known history of CAD with ischemic cardiomyopathy. Despite maximal medical therapy, his ejection fraction remains at 30%. He is at risk for sudden cardiac . He was evaluated by EP services and recommended a single- chamber ICD to be implanted. HOSPITAL COURSE: Patient admitted to the CVC, prepped for a procedure, and taken to the electrophysiology suite where a single-chamber AICD implantation Biotronik device with a right ventricular defibrillator lead implantation. No complications. Patient was transferred back to the CVC, and ultimately to the PCU. There, he has remained in atrial fibrillation with rate controlled. He denies any chest pain, shortness of breath, or symptoms suggesting of ischemia. He has been up and walking the unit without difficulties. PHYSICAL EXAMINATION: GENERAL APPEARANCE: Medium built, moderately obese, male. He is alert and oriented to person, place, time, and situation. Appears to be under no acute distress. VITAL SIGNS: Current vital signs are blood pressure of 117/61, heart rate of 91, respirations 91 on room air. Temperature 36.7 degrees Celsius. HEENT: Head is normocephalic. Lips and tongue are pink and moist with no signs of cyanosis. Conjunctivae pink. NECK: Trachea is midline, +2 carotid pulses bilateral. No auscultated bruits, no jugular vein distention. RESPIRATORY: Lungs clear to auscultation. No rhonchi, rales or wheezes. No accessory muscle use, no intercostal muscle retraction noted. CARDIAC: Irregular rhythm, regular rate. S1, S2. No S3, S4, gallops or rubs noted, 1-2/6 systolic murmur noted along the left sternal border. ABDOMEN: Soft, nontender, bowel sounds x4 quadrants, no organomegaly, no palpable masses. SKIN: [place], warm, dry, no cyanosis, no clubbing, +1 peripheral edema bilateral lower extremities. VASCULAR: +2 carotids bilateral , +2 radials bilateral, +1 posterior tibial pulses bilateral. SKIN: AICD incision site left anterior chest distal to clavicle with incision intact with Steri-Strips. No redness, swelling, drainage, ecchymosis, or hematoma. Dressing change done at this time. LABORATORY STUDIES: Laboratory studies today show a WBC of 7.63, hemoglobin of 16.1, hematocrit of 48.8, platelet count of 149, sodium of 142, potassium 3.9, chloride 102, CO2 28, BUN 26, creatinine 1.0, glucose 121, calcium 9.1. Note, patient's INR was 1.22 on admission. STUDIES: AICD implantation, as mentioned above. Electrocardiogram done on admission showing atrial fibrillation with left anterior fascicular block. Morning chest x-ray today showing mild stable cardiomegaly with evidence of prior CABG. No evidence of CHF. No evidence of delayed pneumothorax. DISCHARGE DISPOSITION: Patient will be discharged home in stable condition. He is under activity restrictions of not lifting left arm higher than shoulder height for the next 6 weeks, not lifting more than 10 pounds for the next week with left arm. He has also been told that he should not be driving until his device check next week. DISCHARGE MEDICATIONS: Please see discharge medication reconciliation sheet. Note, patient has been resumed on regular warfarin dosage. He has a followup appointment with [facility]. DISCHARGE INSTRUCTIONS: Discharge instructions went over with the patient and his family, including monitoring for signs of infection, bleeding, precautions, activity restrictions, and medication compliance. At the time of discharge, patient and family both verbalized understanding. Patient has a followup appointment, device and wound clinic next week, Cou[facility]in [facility] within the next week and will follow up with Dr. Mac in 1 month. TIME SPENT: Total time spent on discharge greater than 30 minutes. /[id number]/MODL MTDD
[2017-11-16] MEDS ORDERED: WARFARIN SODIUM 5 MG TAB PO SCH (09:54)
== END 2017-11-13 10:17 | disposition home or self-care (01) ==
LOC: FLAB 06:38 → F2W 09:53
PROVIDERS: ADMIT Internal Medicine Cardiovascular Disease; ATTEND Internal Medicine Cardiovascular Disease
PROC: 0JH808Z Insertion of Defibrillator Generator into Abdomen Subcutaneous Tissue and Fascia, Open Approach (ICD-10-PCS; principal; 2017-11-12)
PROC: B2141ZZ Fluoroscopy of Right Heart using Low Osmolar Contrast (ICD-10-PCS; principal; 2017-11-12)
PROC: 02HK3KZ Insertion of Defibrillator Lead into Right Ventricle, Percutaneous Approach (ICD-10-PCS; principal; 2017-11-12)
DX: I50.22 Chronic systolic (congestive) heart failure (principal); I25.5 Ischemic cardiomyopathy; I48.91 Unspecified atrial fibrillation; I44.4 Left anterior fascicular block; I25.810 Atherosclerosis of coronary artery bypass graft(s) without angina pectoris; I73.9 Peripheral vascular disease, unspecified; E11.40 Type 2 diabetes mellitus with diabetic neuropathy, unspecified; I11.0 Hypertensive heart disease with heart failure; E78.5 Hyperlipidemia, unspecified; E66.9 Obesity, unspecified; Z68.30 Body mass index [BMI] 30.0-30.9, adult; Z79.01 Long term (current) use of anticoagulants; Z79.82 Long term (current) use of aspirin; Z87.891 Personal history of nicotine dependence; Z82.49 Family history of ischemic heart disease and other diseases of the circulatory system; Z95.1 Presence of aortocoronary bypass graft
CPT/HCPCS: 33249; 71046; 93005; C1722; C1769; C1777; G0378; J0690; J2250; J3010

== ENCOUNTER → 2018-06-23 | Outpatient (CLI) | payer OTHER | LOC: FIMAGING 13:37 | PROVIDERS: ATTEND Physician Assistant Medical | DX: R20.0 Anesthesia of skin (principal); R20.2 Paresthesia of skin ==